=== PATIENT | female | born 1995 ===

== ENCOUNTER 2021-11-10 17:10 | Emergency (ER) | payer OTHER, SELFPAY ==
--- NOTE | ~2021-11-10 | XR_ITS ---
EXAMINATION: XR CHEST CLINICAL INFORMATION: Shortness of breath. COMPARISON: None. TECHNIQUE: PA view of the chest was obtained. FINDINGS: Normal appearance of the cardiomediastinal silhouette. Well expanded lungs without focal airspace opacities, pleural effusions or pneumothorax. The visualized upper abdomen is within normal limits. XR/XR chest 1V IMPRESSION: No acute cardiopulmonary findings.
[2021-11-10 17:17] VITALS: BP 126/78; PULSE 100; RESP 16; TEMP 36.3; O2SAT 97; BMI 22.2
[2021-11-10 17:49] LABS: MANUAL DIFF FLAG NO
[2021-11-10 17:51] LABS: Basophils Percent Auto 0.8 % (0-2); Eosinophils Absolute Auto 0.1 X10*3/uL (0.0-0.4); Eosinophils Percent Auto 2.6 % (0-4); Hematocrit 41.4 % (37.0-47.0); Hemoglobin 13.9 g/dl (12.0-16.0); Imm Gran Abs Auto 0.01 X10*3/uL (0.00-0.03); Imm Gran Pct Auto 0.2 % (0.0-0.4); Lymphocytes Absolute Auto 1.7 X10*3/uL (1.2-4.9); Lymphocytes Percent Auto 32.6 % (20-40); Mean Corpuscular HGB Conc 33.6 g/dl (31.0-35.0); Mean Corpuscular Hemoglobin 31.3 pg (27.0-33.0); Mean Corpuscular Volume 93.2 fL (80.0-98.0); Mean Platelet Volume 10.2 fL (9.4-12.3); Monocytes Absolute Auto 0.5 X10*3/uL (0.1-1.2); Monocytes Percent Auto 9.9 % (2-11); Neutrophils Absolute Auto 2.9 x10*3/uL (2.0-8.3); Neutrophils Percent Auto 53.9 % (45-73); Platelet Count 214 X10*3/uL (160-400); Red Blood Count 4.44 X10*6/uL (4.20-5.50); Red Cell Distribution Width 13.2 % (11.0-16.0); White Blood Count 5.3 X10*3/uL (4.8-10.8)
[2021-11-10 18:03] LABS: Anion Gap 9 (12-20); Blood Urea Nitrogen 14 mg/dL (9-16); Calcium 9.5 mg/dL (8.4-10.2); Carbon Dioxide 28 mmol/L (22-29); Chloride 105 mmol/L (96-108); Creatinine Clr Calc Pharmacy 62.5; Estimated Glomerular Filt Rate > 60; Glucose Random 106 mg/dL (60-115); Potassium 4.1 mmol/L (3.3-5.1); Sodium 138 mmol/L (135-145)
[2021-11-10 18:11] LABS: COVID-19 Test Negative (Negative); IDNOW Serial# 16C4AD1C
[2021-11-10 18:12] LABS: Influenza A Negative (Negative); Influenza B2 Negative (Negative)
--- NOTE | 2021-11-10 18:41 | ED_ITS ---
HPI - Asthma General Chief Complaint: Asthma Stated Complaint: Asthma Time Seen by Provider: 11/10/21 18:41 Source: patient Mode of arrival: ambulatory Limitations: no limitations History of Present Illness HPI Narrative: Patient is a 26 year old female presenting to the emergency department today with an acute asthma exacerbation. Patient states that she has a history of asthma and has been having an increase in wheezing for the last couple of days. Patient denies any dizziness, lightheadedness, abdominal pain, nausea, vomiting, fever, chills, blurry vision, double vision, loss of vision, chest pain, back pain, night sweats, pain with urination, increased urinary frequency, increased urinary urgency, blood in her urine or stool, syncope or a near syncopal episode, recent trauma or falls, bowel incontinence, bladder incontinence, bowel retention, bladder retention, or any other complaints at this time. MD complaint: asthma attack and wheezing Onset (ago): day(s) (3) Severity: mild Associated symptoms: dry cough Treatments Prior to Arrival: inhaled bronchodilator Related Data Current Asthma Therapy: inhaled bronchodilator Previous Rx's Medication Instructions Recorded albuterol sulfate 90 mcg/actuation 2 puff INHALATION Q6H PRN #8.5 g 11/10/21 aerosol inhaler azithromycin 250 mg tablet See Rx Instructions .ROUTE 11/10/21 .COMPLEX #6 tab ipratropium 0.5 mg-albuterol 3 mg 3 ml INHALATION Q6-8H PRN #90 ml 11/10/21 (2.5 mg base)/3 mL nebulization soln prednisone 20 mg tablet 20 mg PO DAILY 12 Days #26 tab 11/10/21 Allergies Allergy/AdvReac Type Severity Reaction Status Date / Time No Known Allergies Allergy Verified 11/10/21 17:20 Review of Systems Constitutional: Constitutional: Reports no additional constitutional complaints, Denies chills, Denies fever(s) and Denies night sweats Eyes: Eyes: Reports no additional eye complaints, Denies blurry vision, Denies change in vision, Denies diplopia, Denies eye discharge, Denies loss of vision and Denies eye pain ENT: Denies dizziness Cardiovascular: Cardiovascular: Reports no additional cardiovascular complaints, Denies chest pain, Denies lightheadedness, Denies Loss of Consciousness and Denies dyspnea Respiratory: Respiratory: Reports no additional respiratory complaints, Reports cough, Denies dyspnea and Reports wheezing Gastrointestinal: Gastrointestinal: Reports no additional gastrointestinal complaints, Denies abdominal pain, Denies melena, Denies hematochezia, Denies change in bowel habits and Denies change in stool character Genitourinary: Genitourinary: Denies hematuria, Denies urinary frequency, Denies dysuria, Denies urinary incontinence, Denies urinary hesitancy and Denies urinary urgency Musculoskeletal: Musculoskeletal: Reports no additional musculoskeletal complaints, Denies numbness and Denies tingling Neurologic: Denies dizziness, Denies loss of vision, Denies numbness and Denies tingling Psychiatric: Psychiatric: Reports no additional psychiatric complaints Endocrine: Endocrine: Reports no additional endocrine complaints Hematologic/Lymphatic: Hematologic/Lymphatic: Reports no additional hematologic/lymphatic complaints Allergic/Immunologic: Allergic/Immunologic: Reports no additional allergic/immunologic complaints and Reports wheezing PMFSH Past Medical History Attestation statement: The following information was validated with the patient. Source: old records reviewed Medical History Asthma Surgical History History of open heart surgery Social History Social History Advance Directives: No Advance Directives Information Provided: No Patient : No Physical Exam Vital Signs: Vital Signs: Last Vital Signs Temp 98.4 F 11/10/21 18:46 Pulse 88 11/10/21 19:22 Resp 18 11/10/21 19:22 BP 103/66 11/10/21 18:46 Pulse Ox 98 11/10/21 18:46 BMI result Body Mass Index 22.2 Const: General: cooperative, no acute distress, alert and awake Nutritional Appearance: well nourished Orientation/consciousness: patient oriented x3 Limitations: no limitations HEENT: Head: Yes normal to inspection and Yes atraumatic Ears: hearing grossly normal bilaterally and external ears normal General nose exam: Normal external nose present, no nasal discharge noted and no epistaxis Face and sinus: Yes normal facial exam, No abrasion and No laceration Mouth: Normal oral and palatal mucosa present, no drooling and no muffled voice Eyes: General: appearance normal, both eyes and all related structures Periorbital: periorbital findings normal Eyelids: Yes eyelids normal Conjunctivae: conjunctivae normal Pupils: Equal, round and reactive pupils present EOM: EOMs intact bilaterally Neck: Neck: Yes normal visual inspection, Yes full ROM and Yes no lymphadenopathy Chest: Chest palpation & inspection: normal inspection of the chest Resp: Effort & Inspection: normal respiratory effort, able to speak in complete sentences and audible wheezes Cardio: Palpation: normal PMI Rate: regular rate GI: Inspection: Yes normal to inspection Neuro: General: patient oriented x3 and moves all extremities Cranial nerves: Yes Equal, round and reactive pupils present Cognition (Neuro): normal cognition Motor exam (neuro): 5/5 motor strength present throughout Sensory Exam: Normal double simultaneous stimulation for sensation Coordination: [id number] test normal Extrem: General: Yes normal to inspection, Yes full ROM and Yes capillary refill normal Psych: Appearance: grossly normal Mental Status: mental status grossly normal Affect: normal affect Attitude: cooperative Thought process: Normal thought process present Thought content: Normal thought content present Insight: Good insight present (Psych) MDM - Asthma MDM Narrative Medical decision making narrative: Patient is a 26 year old female presenting to the emergency department today with an acute asthma exacerbation. Patient's physical exam showed diffuse bilateral wheezes but was otherwise unremarkable. Patient's blood work was unremarkable. Patient's chest x-ray showed no acute process. I explained my physical exam findings as well as all test results to the patient. I answered all questions asked by the patient. Patient received IM Decadron and a duoneb treatment which she stated helped her symptoms significantly. I stressed the importance of the patient taking her medication as prescribed. I stressed the importance of the patient following up with her primary care provider. I stressed the importance of the patient returning to the emergency department immediately if her symptoms were to worsen or if she were to develop any dizziness, shortness of breath, difficulty breathing, chest pain, blurry vision, loss of vision, nausea, vomiting, abdominal pain, fever, chills, back pain, or any other complaints. Patient verbalized agreement and understanding with this treatment plan and discharge. Differential Diagnosis Differential diagnosis: Likely Acute exacerbation Medical Records Attestation: I reviewed the patient's medical records. Lab Data Attestation: I reviewed the patient's lab results. Result diagrams: 11/10/21 17:41 11/10/21 17:41 Labs: Lab Results 11/10/21 11/10/21 11/10/21 Range/Units 17:41 17:41 17:41 WBC 5.3 (4.8-10.8) X10*3/uL RBC 4.44 (4.20-5.50) X10*6/uL Hgb 13.9 (12.0-16.0) g/dl Hct 41.4 (37.0-47.0) % MCV 93.2 (80.0-98.0) fL MCH 31.3 (27.0-33.0) pg MCHC 33.6 (31.0-35.0) g/dl RDW 13.2 (11.0-16.0) % Plt Count 214 (160-400) X10*3/uL MPV 10.2 (9.4-12.3) fL Immature Gran % (Auto) 0.2 (0.0-0.4) % Neut % (Auto) 53.9 (45-73) % Lymph % (Auto) 32.6 (20-40) % [place] % (Auto) 9.9 (2-11) % Eos % (Auto) 2.6 (0-4) % Baso % (Auto) 0.8 (0-2) % Lymph # (Auto) 1.7 (1.2-4.9) X10*3/uL [place] # (Auto) 0.5 (0.1-1.2) X10*3/uL Eos # (Auto) 0.1 (0.0-0.4) X10*3/uL Baso # (Auto) 0.0 (0.0-0.2) X10*3/uL Abs Immat Gran (auto) 0.01 (0.00-0.03) X10*3/uL Absolute Neuts (auto) 2.9 (2.0-8.3) x10*3/uL Absolute Nucleated RBC 0.000 (0.0-0.012) X10*3/uL Nucleated RBC % (auto) 0.0 (0.0-0.2) /100WBC Sodium 138 (135-145) mmol/L Potassium 4.1 (3.3-5.1) mmol/L Chloride 105 (96-108) mmol/L Carbon Dioxide 28 (22-29) mmol/L Anion Gap 9 L (12-20) BUN 14 (9-16) mg/dL Creatinine 0.93 (0.5-1.4) mg/dL Estim Creat Clear Calc 62.5 Estimated GFR > 60 Random Glucose 106 (60-115) mg/dL Calcium 9.5 (8.4-10.2) mg/dL COVID-19 (OMARI) (Negative) COVID-19 Clin Com Influenza Type A (NAYELY) Negative (Negative) Influenza Type B (NAYELY) Negative (Negative) Influenza A & B Note See Note 11/10/21 Range/Units 17:41 WBC (4.8-10.8) X10*3/uL RBC (4.20-5.50) X10*6/uL Hgb (12.0-16.0) g/dl Hct (37.0-47.0) % MCV (80.0-98.0) fL MCH (27.0-33.0) pg MCHC (31.0-35.0) g/dl RDW (11.0-16.0) % Plt Count (160-400) X10*3/uL MPV (9.4-12.3) fL Immature Gran % (Auto) (0.0-0.4) % Neut % (Auto) (45-73) % Lymph % (Auto) (20-40) % [place] % (Auto) (2-11) % Eos % (Auto) (0-4) % Baso % (Auto) (0-2) % Lymph # (Auto) (1.2-4.9) X10*3/uL [place] # (Auto) (0.1-1.2) X10*3/uL Eos # (Auto) (0.0-0.4) X10*3/uL Baso # (Auto) (0.0-0.2) X10*3/uL Abs Immat Gran (auto) (0.00-0.03) X10*3/uL Absolute Neuts (auto) (2.0-8.3) x10*3/uL Absolute Nucleated RBC (0.0-0.012) X10*3/uL Nucleated RBC % (auto) (0.0-0.2) /100WBC Sodium (135-145) mmol/L Potassium (3.3-5.1) mmol/L Chloride (96-108) mmol/L Carbon Dioxide (22-29) mmol/L Anion Gap (12-20) BUN (9-16) mg/dL Creatinine (0.5-1.4) mg/dL Estim Creat Clear Calc Estimated GFR Random Glucose (60-115) mg/dL Calcium (8.4-10.2) mg/dL COVID-19 (OMARI) Negative (Negative) COVID-19 Clin Com See Note Influenza Type A (NAYELY) (Negative) Influenza Type B (NAYELY) (Negative) Influenza A & B Note Imaging Data Chest x-ray: Attestation: I personally reviewed and interpreted this imaging study as follows: My impression: No acute process. Radiologist's impression: EXAMINATION: XR CHEST CLINICAL INFORMATION: Shortness of breath. COMPARISON: None. TECHNIQUE: PA view of the chest was obtained. FINDINGS: Normal appearance of the cardiomediastinal silhouette. Well expanded lungs without focal airspace opacities, pleural effusions or pneumothorax. The visualized upper abdomen is within normal limits. XR/XR chest 1V IMPRESSION: No acute cardiopulmonary findings. Dictated By: Yessy Washington Signed By: Electronically signed by Yessy? Padmini 11/10/21 [id number] Discharge Plan Discharge Clinical Impression: Asthma with acute exacerbation Patient Disposition: Home, Self-Care Instructions: Asthma (ED) Additional Instructions: Follow up with your primary care provider. Return to the emergency department immediately if your symptoms worsen or if you develop any dizziness, shortness of breath, difficulty breathing, chest pain, blurry vision, loss of vision, nausea, vomiting, abdominal pain, fever, chills, back pain, or any other complaints. Prescriptions: New prednisone 20 mg tablet 20 mg PO DAILY 12 Days Qty: 26 0RF Rx Instructions: Take 3 tablets once daily for 5 days THEN; Take 2 tablets once daily for 4 days THEN; take 1 tablet for 3 days azithromycin 250 mg tablet See Rx Instructions .ROUTE .COMPLEX Qty: 6 0RF Rx Instructions: For 250 mg dose pack: take 500 mg today (day 1), then 250 mg for 4 days (days 2-5) albuterol sulfate 90 mcg/actuation HFA aerosol inhaler 2 puff inhalation Q6H PRN (Reason: shortness of breath or wheezing) Qty: 8.5 0RF ipratropium-albuterol 0.5 mg-3 mg(2.5 mg base)/3 mL solution for nebulization 3 ml inhalation Q6-8H PRN (Reason: shortness of breath) Qty: 90 0RF Referrals: [facility] [place] Family Medicine [Provider Group] [facility] Primary Care, Artemio [Provider Group] [facility] [place] Primary Care,Bria [Provider Group] Physician,None [Primary Care Provider] - (Follow up with your PCP. ) Interventions: ED Discharge Assessment Last Done: 11/10/21 19:58 Discharge Date/Time: 11/10/21 20:00 Print Language: Kiswahili
[2021-11-10 18:46] VITALS: BP 103/66; PULSE 88; RESP 17; TEMP 36.9; O2SAT 98
[2021-11-10] MEDS: dexAMETHasone sod phosphate 10 MG/ML VIAL IM (19:07)
[2021-11-10] MEDS: Albuterol/Iprat 2.5/0.5MG 3 ML AMPUL.NEB INHALE (19:20)
[2021-11-10 19:22] VITALS: PULSE 88; RESP 18; O2SAT 98
== END 2021-11-10 20:00 | disposition home or self-care (01) ==
PROVIDERS: Emergency Provider Emergency Medicine Emergency Medical Services
DX: J45.901 Unspecified asthma with (acute) exacerbation (principal); R06.02 Shortness of breath; R05.9 Cough, unspecified; Z20.822 Contact with and (suspected) exposure to COVID-19; Z79.899 Other long term (current) drug therapy
CPT/HCPCS: 36415; 71045; 80048; 85025; 87502; 87635; 94640; 96372; 99284; J1100

== ENCOUNTER 2021-11-14 19:14 | Emergency (ER) | payer OTHER, SELFPAY ==
[2021-11-14 19:42] VITALS: BP 97/54; PULSE 97; RESP 15; TEMP 36.2; O2SAT 99; BMI 22.2
== END 2021-11-14 22:53 | disposition left against medical advice (07) ==
PROVIDERS: Emergency Provider Emergency Medicine
DX: J45.909 Unspecified asthma, uncomplicated (principal)
CPT/HCPCS: 99281; 99282

== ENCOUNTER 2022-04-18 19:03 | Emergency (ER) | payer OTHER, SELFPAY ==
--- NOTE | ~2022-04-18 | XR_ITS ---
EXAMINATION: XR CHEST CLINICAL INFORMATION: Chest pain COMPARISON: 11/10/2021 TECHNIQUE: 2 views of the chest were obtained. FINDINGS: Normal symmetric lung volumes. No parenchymal consolidation. No pleural effusion. No pneumothorax. Cardiomediastinal silhouette and pulmonary vascularity are within normal limits. No acute osseous abnormalities. Mild pectus excavatum. XR/XR chest 2V IMPRESSION: No acute findings Mild pectus excavatum.
--- NOTE | 2022-04-18 19:06 | ECG_ITS ---
Test Reason : cp Blood Pressure : / mmHG Vent. Rate : 073 BPM Atrial Rate : 073 BPM P-R Int : 166 ms QRS Dur : 074 ms QT Int : 412 ms P-R-T Axes : 046 076 032 degrees QTc Int : 453 ms Normal sinus rhythm T wave abnormality, consider anterior ischemia Abnormal ECG No previous ECGs available Referred By: Generic ED Physician Electronically Signed By:NIKOLAI DELGADO
[2022-04-18 19:11] VITALS: BP 131/77; PULSE 74; RESP 18; TEMP 37; O2SAT 99; BMI 22.2
[2022-04-18 19:23] LABS: MANUAL DIFF FLAG NO
[2022-04-18 19:31] LABS: Basophils Percent Auto 1.1 % (0-2); Eosinophils Absolute Auto 0.2 X10*3/uL (0.0-0.4); Eosinophils Percent Auto 6.5 % (0-4); Hematocrit 41.9 % (37.0-47.0); Lymphocytes Absolute Auto 1.5 X10*3/uL (1.2-4.9); Lymphocytes Percent Auto 41.6 % (20-40); Mean Corpuscular HGB Conc 33.4 g/dl (31.0-35.0); Mean Corpuscular Hemoglobin 30.7 pg (27.0-33.0); Mean Corpuscular Volume 91.9 fL (80.0-98.0); Mean Platelet Volume 9.6 fL (9.4-12.3); Monocytes Absolute Auto 0.6 X10*3/uL (0.1-1.2); Monocytes Percent Auto 17.1 % (2-11); Neutrophils Absolute Auto 1.2 x10*3/uL (2.0-8.3); Neutrophils Percent Auto 33.7 % (45-73); Platelet Count 175 X10*3/uL (160-400); Red Blood Count 4.56 X10*6/uL (4.20-5.50); Red Cell Distribution Width 12.8 % (11.0-16.0); White Blood Count 3.7 X10*3/uL (4.8-10.8)
[2022-04-18 19:43] LABS: Alanine Aminotransferase 11 U/L (0-31); Albumin Level 4.8 g/dL (3.5-5.0); Alkaline Phosphatase 58 U/L (39-117); Anion Gap 18 (12-20); Aspartate Amino Transferase 18 U/L (5-31); Blood Urea Nitrogen 11 mg/dL (9-16); Calcium 9.7 mg/dL (8.4-10.2); Carbon Dioxide 24 mmol/L (22-29); Chloride 102 mmol/L (96-108); Creatinine Clr Calc Pharmacy 66.2; Estimated Glomerular Filt Rate > 60; Glucose Random 83 mg/dL (60-115); Potassium 4.5 mmol/L (3.3-5.1); Sodium 139 mmol/L (135-145); Total Protein 7.7 g/dL (6.5-8.0)
[2022-04-18 19:48] LABS: Troponin-I High Sensitivity 3.8 ng/L (<3.5-17.0)
[2022-04-18 19:50] LABS: Bilirubin Total 0.7 mg/dL (0.0-1.0)
--- NOTE | 2022-04-18 23:10 | ED.CHESTPAIN ---
HPI - Chest Pain General Chief Complaint: Chest Pain Stated Complaint: chest pain Source: patient Mode of arrival: ambulatory Limitations: no limitations History of Present Illness HPI narrative: 27-year-old female presents for chest tightness and pressure, and asthma exacerbation. States that she has had a difficult time manage her asthma symptoms with her albuterol nebulizers. 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 She just moved to [place] from [place], does not have primary care. Her chest pain is not associated with dizziness, weakness, lightheadedness, nausea, vomiting, palpitations, abdominal pain, abdominal distention, dysuria, hematuria, fevers or chills. MD complaint: chest pain and chest heaviness Pertinent past history: asthma Onset (ago): day(s) (1) Timing of current episode: constant Prior episodes: Yes Onset: during exertion Pain location: substernal, left chest and right chest Pain radiation: none Severity: moderate Pain scale (0-10): 6 Quality: tightness Relieving factors: rest Exacerbating factors: exertion Treatment prior to arrival: none Related Data On Oral Contraceptives: No Previous Rx's Medication Instructions Recorded albuterol sulfate 90 mcg/actuation 2 puff inhalation Q6H PRN 11/10/21 aerosol inhaler shortness of breath or wheezing #8.5 grams azithromycin 250 mg tablet See Rx Instructions PO .COMPLEX #6 11/10/21 tabs ipratropium 0.5 mg-albuterol 3 mg 3 ml inhalation Q6-8H PRN 11/10/21 (2.5 mg base)/3 mL nebulization shortness of breath #90 mL soln prednisone 20 mg tablet 20 mg PO DAILY 12 days #26 tabs 11/10/21 Allergies Allergy/AdvReac Type Severity Reaction Status Date / Time No Known Allergies Allergy Verified 11/10/21 17:20 Review of Systems Review of Systems: Constitutional: No Fever, No Chills ENT/Mouth: No Ear Pain, No Hoarseness, No sore throat Eyes: No Eye Pain, No Swelling, No Redness, No Foreign Body Cardiovascular: Positive Chest Pain, positive SOB Respiratory: No Cough, No Dyspnea Gastrointestinal: No Nausea, No Vomiting, No Diarrhea, No abdominal Pain Genitourinary: No Dysuria, No Hematuria Musculoskeletal: No joint pain, No Myalgias, No Joint Swelling Skin: No Skin lacerations, No rash Neuro: No Weakness, No Numbness, No Paresthesias, No Loss of Consciousness, No Dizziness, No Headache Psych: No Anxiety/Panic, No Depression Heme/Lymph: no easy bruising, no Lymphadenopathy Endocrine: No Polyuria, No Polydipsia Yes all other systems are reviewed and are negative [facility] Past Medical History Attestation statement: The following information was validated with the patient. Source: old records reviewed Medical History Asthma Surgical History History of open heart surgery Social History Social History Advance Directives: No Advance Directives Information Provided: Yes Physical Exam Vital Signs: Vital Signs: Last Vital Signs Temp 98.1 F 04/18/22 23:40 Pulse 51 04/18/22 23:40 Resp 16 04/18/22 23:40 BP 112/60 04/18/22 23:40 Pulse Ox 97 04/18/22 23:40 O2 Del Method 04/18/22 23:40 BMI result Body Mass Index 22.2 Appearance: Alert. Oriented X3. No acute distress. Eyes: Pupils equal, round and reactive to light. ENT: Pharynx normal. Neck: Normal inspection. Neck supple. CVS: Normal heart rate and rhythm. Pulses normal. Respiratory: No respiratory distress. Lung sounds clear to auscultation all lobes. Abdomen: Soft and nontender. Skin: Skin warm and dry. Normal skin color. Normal skin turgor. Extremities: No lower extremity edema. Gait well-balanced well coordinated. Neuro: No motor deficit. No sensory deficit. Cranial nerves 2-12 intact. Course Course Course Narrative: 27-year-old female presents chest tightness shortness of breath 1 day. Has been using her albuterol inhaler with poor effect. Patient is adamant that she requires prednisone at this time, I did explain to her that her physical exam was unremarkable. She does understand the risks of over use of prednisone but feels that this time her chest tightness will not be resolved without it. Labs drawn while patient was in the emergency department waiting room, indicates a white count of 3.7, with normal chemistries, a negative troponin and normal EKG. At this time will order chest x-ray, albuterol neb and a Solu-Medrol 60 mg. 00:00 2nd troponin is negative. Plan of care is to discharge home. I will refer to pulmonology as well as Cardiology. Patient verbalized understanding of and agrees to plan of care. Verbalized understanding of signs symptoms indicating need for emergent intervention. MDM - Chest Pain Differential Diagnosis Differential diagnosis: Likely fracture of rib, pneumothorax, stable angina, atypical chest pain, st elevation myocardial infarction and chest pain Medical Records Data Attestation: I reviewed the patient's medical records. Lab Data Attestation: I reviewed the patient's lab results. Result diagrams: 04/18/22 19:18 04/18/22 19:18 Labs: Lab Results 04/18/22 04/18/22 04/18/22 Range/Units 19:18 19:18 19:18 WBC 3.7 L (4.8-10.8) X10*3/uL RBC 4.56 (4.20-5.50) X10*6/uL Hgb 14.0 (12.0-16.0) g/dl Hct 41.9 (37.0-47.0) % MCV 91.9 (80.0-98.0) fL MCH 30.7 (27.0-33.0) pg MCHC 33.4 (31.0-35.0) g/dl RDW 12.8 (11.0-16.0) % Plt Count 175 (160-400) X10*3/uL MPV 9.6 (9.4-12.3) fL Immature Gran % (Auto) 0.0 (0.0-0.4) % Neut % (Auto) 33.7 L (45-73) % Lymph % (Auto) 41.6 H (20-40) % [place] % (Auto) 17.1 H (2-11) % Eos % (Auto) 6.5 H (0-4) % Baso % (Auto) 1.1 (0-2) % Lymph # (Auto) 1.5 (1.2-4.9) X10*3/uL [place] # (Auto) 0.6 (0.1-1.2) X10*3/uL Eos # (Auto) 0.2 (0.0-0.4) X10*3/uL Baso # (Auto) 0.0 (0.0-0.2) X10*3/uL Abs Immat Gran (auto) 0.00 (0.00-0.03) X10*3/uL Absolute Neuts (auto) 1.2 L (2.0-8.3) x10*3/uL Absolute Nucleated RBC 0.000 (0.0-0.012) X10*3/uL Nucleated RBC % (auto) 0.0 (0.0-0.2) /100WBC Sodium 139 (135-145) mmol/L Potassium 4.5 (3.3-5.1) mmol/L Chloride 102 (96-108) mmol/L Carbon Dioxide 24 (22-29) mmol/L Anion Gap 18 (12-20) BUN 11 (9-16) mg/dL Creatinine 0.87 (0.5-1.4) mg/dL Estim Creat Clear Calc 66.2 Estimated GFR > 60 Random Glucose 83 (60-115) mg/dL Calcium 9.7 (8.4-10.2) mg/dL Total Bilirubin 0.7 (0.0-1.0) mg/dL AST 18 (5-31) U/L ALT 11 (0-31) U/L Alkaline Phosphatase 58 (39-117) U/L Troponin I High Sens 3.8 (<3.5-17.0) ng/L Total Protein 7.7 (6.5-8.0) g/dL Albumin 4.8 (3.5-5.0) g/dL 04/18/22 Range/Units 23:29 WBC (4.8-10.8) X10*3/uL RBC (4.20-5.50) X10*6/uL Hgb (12.0-16.0) g/dl Hct (37.0-47.0) % MCV (80.0-98.0) fL MCH (27.0-33.0) pg MCHC (31.0-35.0) g/dl RDW (11.0-16.0) % Plt Count (160-400) X10*3/uL MPV (9.4-12.3) fL Immature Gran % (Auto) (0.0-0.4) % Neut % (Auto) (45-73) % Lymph % (Auto) (20-40) % [place] % (Auto) (2-11) % Eos % (Auto) (0-4) % Baso % (Auto) (0-2) % Lymph # (Auto) (1.2-4.9) X10*3/uL [place] # (Auto) (0.1-1.2) X10*3/uL Eos # (Auto) (0.0-0.4) X10*3/uL Baso # (Auto) (0.0-0.2) X10*3/uL Abs Immat Gran (auto) (0.00-0.03) X10*3/uL Absolute Neuts (auto) (2.0-8.3) x10*3/uL Absolute Nucleated RBC (0.0-0.012) X10*3/uL Nucleated RBC % (auto) (0.0-0.2) /100WBC Sodium (135-145) mmol/L Potassium (3.3-5.1) mmol/L Chloride (96-108) mmol/L Carbon Dioxide (22-29) mmol/L Anion Gap (12-20) BUN (9-16) mg/dL Creatinine (0.5-1.4) mg/dL Estim Creat Clear Calc Estimated GFR Random Glucose (60-115) mg/dL Calcium (8.4-10.2) mg/dL Total Bilirubin (0.0-1.0) mg/dL AST (5-31) U/L ALT (0-31) U/L Alkaline Phosphatase (39-117) U/L Troponin I High Sens < 3.5 (<3.5-17.0) ng/L Total Protein (6.5-8.0) g/dL Albumin (3.5-5.0) g/dL Imaging Data Chest x-ray: Attestation: I personally reviewed and interpreted this imaging study as follows: Radiologist's impression: EXAMINATION: XR CHEST CLINICAL INFORMATION: Chest pain COMPARISON: 11/10/2021 TECHNIQUE: 2 views of the chest were obtained. FINDINGS: Normal symmetric lung volumes. No parenchymal consolidation. No pleural effusion. No pneumothorax.? Cardiomediastinal silhouette and pulmonary vascularity are within normal limits. No acute osseous abnormalities. Mild pectus excavatum. XR/XR chest 2V IMPRESSION: No acute findings Mild pectus excavatum. ECG Data ECG #1: ECG interpretation date: 04/18/22 ECG interpretation time: 19:08 Prior ECG tracings: not available for review Interpretation: Vent. rate 73 BPM ME interval 166 ms QRS duration 74 ms QT/QTc 412/453 ms P-R-T axes 46 76 32 Normal sinus rhythm T wave abnormality, consider anterior ischemia Abnormal ECG No previous ECGs available Discharge Plan Discharge Clinical Impression: Atypical chest pain, Asthma exacerbation Patient Disposition: Home, Self-Care Instructions: Chest Pain (ED), Asthma (ED) Additional Instructions: You were evaluated for chest pain and shortness of breath. EKG was normal, troponins were negative. Chest x-ray was normal. Please follow-up with pulmonology, I referred her to Dr. Perez. Please call and request an appointment for evaluation for asthma. You have a history of cardiac surgery as a child for tetralogy of Fallot repair. You have requested Cardiology referral, please follow-up with Dr. Oviedo. Please call and request for an appointment. Thank you for choosing this emergency department for evaluation. Please follow-up with primary care physician as needed. Return to the emergency department for any new, concerning, or worsening symptoms. Prescriptions: No Action prednisone 20 mg tablet 20 mg PO DAILY 12 Days Qty: 26 0RF Rx Instructions: Take 3 tablets once daily for 5 days THEN; Take 2 tablets once daily for 4 days THEN; take 1 tablet for 3 days azithromycin 250 mg tablet See Rx Instructions .ROUTE .COMPLEX Qty: 6 0RF Rx Instructions: For 250 mg dose pack: take 500 mg today (day 1), then 250 mg for 4 days (days 2-5) albuterol sulfate 90 mcg/actuation HFA aerosol inhaler 2 puff inhalation Q6H PRN (Reason: shortness of breath or wheezing) Qty: 8.5 0RF ipratropium-albuterol 0.5 mg-3 mg(2.5 mg base)/3 mL solution for nebulization 3 ml inhalation Q6-8H PRN (Reason: shortness of breath) Qty: 90 0RF Referrals: William Oviedo MD [Physician] - 2 weeks (consult ) Devan Perez MD [Physician] - 2 weeks (Asthma evaluation)
[2022-04-18 23:40] VITALS: BP 112/60; PULSE 51; RESP 16; TEMP 36.7; O2SAT 97
[2022-04-18] MEDS: methylPREDNISolone Sod Succ 125 MG/2 ML VIAL 60 MG IVPUSH (23:47)
--- NOTE | 2022-04-18 23:51 | PC.NURSE ---
pt a&ox3, vss, 20 G IV placed left AC, labs drawn, xr results pending. resp contacted re breathing treatment. no new orders at this time.
[2022-04-18 23:54] LABS: Troponin-I High Sensitivity < 3.5 ng/L (<3.5-17.0)
[2022-04-19] MEDS: Albuterol Sulfate 2.5 MG, Albuterol Sulfate (0.083%) 2.5 MG 5 MG INHALE (00:18)
== END 2022-04-19 00:54 | disposition home or self-care (01) ==
PROVIDERS: Nurse Practitioner Family; Emergency Provider Emergency Medicine
DX: R07.89 Other chest pain (principal); J45.901 Unspecified asthma with (acute) exacerbation
CPT/HCPCS: 36415; 71046; 80053; 84484; 85025; 93005; 96374; 99284; J2930

== ENCOUNTER 2022-07-11 18:59 | Emergency (ER) | payer OTHER, SELFPAY ==
[2022-07-11 19:35] VITALS: BP 121/73; PULSE 49; RESP 16; TEMP 36.6; O2SAT 100; BMI 22.2
--- NOTE | 2022-07-11 19:37 | ECG_ITS ---
Test Reason : LOW HEART RATE Blood Pressure : / mmHG Vent. Rate : 044 BPM Atrial Rate : 044 BPM P-R Int : 176 ms QRS Dur : 078 ms QT Int : 456 ms P-R-T Axes : 014 072 039 degrees QTc Int : 389 ms Marked sinus bradycardia T wave abnormality, consider anterior ischemia vs juvenile T waves Abnormal ECG When compared with ECG of 18-APR-2022 19:08, Vent. rate has decreased BY 29 BPM QT has shortened Referred By: Donald Enriquez Electronically Signed By:William Oviedo
--- NOTE | 2022-07-11 19:40 | ED.GENADULT ---
HPI - General Adult General Chief complaint: Arrhythmia/Palpitations <LORENA Williamson - Last Filed: 07/15/22 12:53> Stated complaint: asthma,low heart rate,out of inhaler <LORENA Williamson - Last Filed: 07/15/22 12:53> Time Seen by Provider: 07/11/22 22:32 <LORENA Williamson - Last Filed: 07/15/22 12:53> Source: patient <Tin Garcia MD - Last Filed: 07/11/22 23:49> Mode of arrival: ambulatory <Tin Garcia MD - Last Filed: 07/11/22 23:49> Limitations: no limitations <Tin Garcia MD - Last Filed: 07/11/22 23:49> History of Present Illness HPI narrative: Patient with history of asthma been having shortness of breath for last few days ran out of her inhaler went to urgent care center where notice her heart rate was slow in 40s patient asymptomatic no dizziness no syncope patient usually runs in the 60s <Tin Garcia MD - Last Filed: 07/11/22 23:49> Related Data Home medications: Previous Rx's Medication Instructions Recorded albuterol sulfate 90 mcg/actuation 2 puff inhalation Q6H PRN 11/10/21 aerosol inhaler shortness of breath or wheezing #8.5 grams azithromycin 250 mg tablet See Rx Instructions PO .COMPLEX #6 11/10/21 tabs ipratropium 0.5 mg-albuterol 3 mg 3 ml inhalation Q6-8H PRN 11/10/21 (2.5 mg base)/3 mL nebulization shortness of breath #90 mL soln prednisone 20 mg tablet 20 mg PO DAILY 12 days #26 tabs 11/10/21 albuterol sulfate 90 mcg/actuation 2 puff inhalation Q4-6H PRN 07/11/22 aerosol inhaler (ProAir HFA) shortness of breath or wheezing #8.5 grams prednisone 20 mg tablet 40 mg PO DAILY #10 tabs 07/11/22 <LORENA Williamson - Last Filed: 07/15/22 12:53> Allergies/adverse reactions: Allergies Allergy/AdvReac Type Severity Reaction Status Date / Time No Known Allergies Allergy Verified 07/11/22 19:38 <LORENA Williamson - Last Filed: 07/15/22 12:53> Review of Systems Review of Systems: Yes all other systems are reviewed and are negative <Tin Garcia MD - Last Filed: 07/11/22 23:49> PMFSH Past Medical History Medical History: Medical History Asthma <LORENA Williamson - Last Filed: 07/15/22 12:53> Surgical History: Surgical History History of open heart surgery <LORENA Williamson - Last Filed: 07/15/22 12:53> Social History Social History: Social History Advance Directives: No Advance Directives Information Provided: No <LORENA Williamson - Last Filed: 07/15/22 12:53> Physical Exam ED Vital Signs: Vital Signs - 24 hr 07/11/22 19:35 07/11/22 23:19 07/11/22 23:24 Temperature 97.8 F 98.0 F Pulse Rate 49 L 53 62 Respiratory Rate 16 12 Blood Pressure 121/73 113/65 120/85 Pulse Oximetry 100 100 Oxygen Delivery Method Room Air Room Air 07/11/22 23:21 07/11/22 23:22 Temperature Pulse Rate 52 64 Respiratory Rate Blood Pressure 122/78 120/85 Pulse Oximetry Oxygen Delivery Method BMI result Body Mass Index 22.2 <LORENA Williamson - Last Filed: 07/15/22 12:53> Vital Signs - 24 hr 07/11/22 19:35 07/11/22 23:19 07/11/22 23:24 Temperature 97.8 F 98.0 F Pulse Rate 49 L 53 62 Respiratory Rate 16 12 Blood Pressure 121/73 113/65 120/85 Pulse Oximetry 100 100 Oxygen Delivery Method Room Air Room Air 07/11/22 23:21 07/11/22 23:22 Temperature Pulse Rate 52 64 Respiratory Rate Blood Pressure 122/78 120/85 Pulse Oximetry Oxygen Delivery Method BMI result Body Mass Index 22.2 <Tin Garcia MD - Last Filed: 07/11/22 23:49> Appearance: Alert. Oriented X3. No acute distress. Eyes: PERRLA, No Nystagmus ENT: Pharynx normal. Oral Mucosa moist Neck: Normal inspection. Neck supple. Thyroid not palpable CVS: Regular rate and rhythm bradycardic no murmur rub or gallop. Pulses normal. Respiratory: No respiratory distress. Equal air entry bilateral, bilateral wheezing Abdomen: Soft and nontender. Bowel sounds are present, no mass palpable, no CVA tenderness Skin: Skin warm and dry. Normal skin color. Normal skin turgor. Extremities: No lower extremity edema. No calf tenderness Neuro: Oriented X 3. No motor deficit. <Tin Garcia MD - Last Filed: 07/11/22 23:49> Course Course Course Narrative: RME: Patient presents to the ED for low heart rate and chest tighthness. patient sent from urgent care. Patient EKG from urgent care shows sinus bradycardia with HR 47. new EKG, labs, and chest xray ordered <LORENA Williamson - Last Filed: 07/15/22 12:53> Medications Administered Discontinued Medications Generic Name Dose Route Start Last Admin Trade Name Freq PRN Reason Stop Dose Admin Albuterol Sulfate 4 puff 07/11/22 22:43 07/11/22 23:11 Albuterol Sulfate 90 Mcg 8 Gm Inhaler INHALE 07/11/22 22:44 4 puff ONCE ONE Administration Dexamethasone 10 mg 07/11/22 22:43 07/11/22 23:44 Dexamethasone 2 Mg Tablet PO 07/11/22 22:44 10 mg ONCE ONE Administration <LORENA Williamson - Last Filed: 07/15/22 12:53> Medications Administered Discontinued Medications Generic Name Dose Route Start Last Admin Trade Name Freq PRN Reason Stop Dose Admin Albuterol Sulfate 4 puff 07/11/22 22:43 07/11/22 23:11 Albuterol Sulfate 90 Mcg 8 Gm Inhaler INHALE 07/11/22 22:44 4 puff ONCE ONE Administration Dexamethasone 10 mg 07/11/22 22:43 07/11/22 23:44 Dexamethasone 2 Mg Tablet PO 07/11/22 22:44 10 mg ONCE ONE Administration <Tin Garcia MD - Last Filed: 07/11/22 23:49> Medical Decision Making Medical Decision Making [facility] Narrative: Patient with sinus bradycardia asymptomatic on standing heart rate increased to 60. Clinically euthyroid TSH is normal. Patient advised to follow with cardiology/PCP for further evaluation <Tin Garcia MD - Last Filed: 07/11/22 23:49> Lab Data [facility] Lab Attestation statement: I reviewed the patient's lab results. <Tin Garcia MD - Last Filed: 07/11/22 23:49> Result Diagrams: : 07/11/22 20:06 07/11/22 20:06 <LORENA Williamson - Last Filed: 07/15/22 12:53> Labs: Lab Results 07/11/22 07/11/22 07/11/22 Range/Units 20:06 20:06 20:06 WBC 5.6 (4.8-10.8) X10*3/uL RBC 4.32 (4.20-5.50) X10*6/uL Hgb 13.2 (12.0-16.0) g/dl Hct 40.0 (37.0-47.0) % MCV 92.6 (80.0-98.0) fL MCH 30.6 (27.0-33.0) pg MCHC 33.0 (31.0-35.0) g/dl RDW 12.8 (11.0-16.0) % Plt Count 187 (160-400) X10*3/uL MPV 10.0 (9.4-12.3) fL Immature Gran % (Auto) 0.2 (0.0-0.4) % Neut % (Auto) 37.3 L (45-73) % Lymph % (Auto) 47.9 H (20-40) % Lanier % (Auto) 7.5 (2-11) % Eos % (Auto) 6.6 H (0-4) % Baso % (Auto) 0.5 (0-2) % Lymph # (Auto) 2.7 (1.2-4.9) X10*3/uL Lanier # (Auto) 0.4 (0.1-1.2) X10*3/uL Eos # (Auto) 0.4 (0.0-0.4) X10*3/uL Baso # (Auto) 0.0 (0.0-0.2) X10*3/uL Abs Immat Gran (auto) 0.01 (0.00-0.03) X10*3/uL Absolute Neuts (auto) 2.1 (2.0-8.3) x10*3/uL Absolute Nucleated RBC 0.000 (0.0-0.012) X10*3/uL Nucleated RBC % (auto) 0.0 (0.0-0.2) /100WBC PT (10.0-13.1) SEC INR (0.9-1.1) APTT (26.0-36.4) SEC Sodium 139 (135-145) mmol/L Potassium 4.6 (3.3-5.1) mmol/L Chloride 106 (96-108) mmol/L Carbon Dioxide 26 (22-29) mmol/L Anion Gap 12 (12-20) BUN 21 H (9-16) mg/dL Creatinine 0.77 (0.5-1.4) mg/dL Estim Creat Clear Calc 74.8 Estimated GFR > 60 Random Glucose 90 (60-115) mg/dL Calcium 9.4 (8.4-10.2) mg/dL Total Bilirubin 0.4 (0.0-1.0) mg/dL AST 14 (5-31) U/L ALT 7 (0-31) U/L Alkaline Phosphatase 59 (39-117) U/L Troponin I High Sens < 3.5 (<3.5-17.0) ng/L B-Natriuretic Peptide (<100) pg/mL Total Protein 6.8 (6.5-8.0) g/dL Albumin 4.3 (3.5-5.0) g/dL TSH 1.09 (0.32-4.0) uIU/mL 07/11/22 07/11/22 Range/Units 20:06 20:06 WBC (4.8-10.8) X10*3/uL RBC (4.20-5.50) X10*6/uL Hgb (12.0-16.0) g/dl Hct (37.0-47.0) % MCV (80.0-98.0) fL MCH (27.0-33.0) pg MCHC (31.0-35.0) g/dl RDW (11.0-16.0) % Plt Count (160-400) X10*3/uL MPV (9.4-12.3) fL Immature Gran % (Auto) (0.0-0.4) % Neut % (Auto) (45-73) % Lymph % (Auto) (20-40) % Lanier % (Auto) (2-11) % Eos % (Auto) (0-4) % Baso % (Auto) (0-2) % Lymph # (Auto) (1.2-4.9) X10*3/uL Lanier # (Auto) (0.1-1.2) X10*3/uL Eos # (Auto) (0.0-0.4) X10*3/uL Baso # (Auto) (0.0-0.2) X10*3/uL Abs Immat Gran (auto) (0.00-0.03) X10*3/uL Absolute Neuts (auto) (2.0-8.3) x10*3/uL Absolute Nucleated RBC (0.0-0.012) X10*3/uL Nucleated RBC % (auto) (0.0-0.2) /100WBC PT 13.0 (10.0-13.1) SEC INR 1.1 (0.9-1.1) APTT 32.2 (26.0-36.4) SEC Sodium (135-145) mmol/L Potassium (3.3-5.1) mmol/L Chloride (96-108) mmol/L Carbon Dioxide (22-29) mmol/L Anion Gap (12-20) BUN (9-16) mg/dL Creatinine (0.5-1.4) mg/dL Estim Creat Clear Calc Estimated GFR Random Glucose (60-115) mg/dL Calcium (8.4-10.2) mg/dL Total Bilirubin (0.0-1.0) mg/dL AST (5-31) U/L ALT (0-31) U/L Alkaline Phosphatase (39-117) U/L Troponin I High Sens (<3.5-17.0) ng/L B-Natriuretic Peptide 35 (<100) pg/mL Total Protein (6.5-8.0) g/dL Albumin (3.5-5.0) g/dL TSH (0.32-4.0) uIU/mL <LORENA Williamson - Last Filed: 07/15/22 12:53> Lab Results 07/11/22 07/11/22 07/11/22 Range/Units 20:06 20:06 20:06 WBC 5.6 (4.8-10.8) X10*3/uL RBC 4.32 (4.20-5.50) X10*6/uL Hgb 13.2 (12.0-16.0) g/dl Hct 40.0 (37.0-47.0) % MCV 92.6 (80.0-98.0) fL MCH 30.6 (27.0-33.0) pg MCHC 33.0 (31.0-35.0) g/dl RDW 12.8 (11.0-16.0) % Plt Count 187 (160-400) X10*3/uL MPV 10.0 (9.4-12.3) fL Immature Gran % (Auto) 0.2 (0.0-0.4) % Neut % (Auto) 37.3 L (45-73) % Lymph % (Auto) 47.9 H (20-40) % Lanier % (Auto) 7.5 (2-11) % Eos % (Auto) 6.6 H (0-4) % Baso % (Auto) 0.5 (0-2) % Lymph # (Auto) 2.7 (1.2-4.9) X10*3/uL Lanier # (Auto) 0.4 (0.1-1.2) X10*3/uL Eos # (Auto) 0.4 (0.0-0.4) X10*3/uL Baso # (Auto) 0.0 (0.0-0.2) X10*3/uL Abs Immat Gran (auto) 0.01 (0.00-0.03) X10*3/uL Absolute Neuts (auto) 2.1 (2.0-8.3) x10*3/uL Absolute Nucleated RBC 0.000 (0.0-0.012) X10*3/uL Nucleated RBC % (auto) 0.0 (0.0-0.2) /100WBC PT (10.0-13.1) SEC INR (0.9-1.1) APTT (26.0-36.4) SEC Sodium 139 (135-145) mmol/L Potassium 4.6 (3.3-5.1) mmol/L Chloride 106 (96-108) mmol/L Carbon Dioxide 26 (22-29) mmol/L Anion Gap 12 (12-20) BUN 21 H (9-16) mg/dL Creatinine 0.77 (0.5-1.4) mg/dL Estim Creat Clear Calc 74.8 Estimated GFR > 60 Random Glucose 90 (60-115) mg/dL Calcium 9.4 (8.4-10.2) mg/dL Total Bilirubin 0.4 (0.0-1.0) mg/dL AST 14 (5-31) U/L ALT 7 (0-31) U/L Alkaline Phosphatase 59 (39-117) U/L Troponin I High Sens < 3.5 (<3.5-17.0) ng/L B-Natriuretic Peptide (<100) pg/mL Total Protein 6.8 (6.5-8.0) g/dL Albumin 4.3 (3.5-5.0) g/dL TSH 1.09 (0.32-4.0) uIU/mL 07/11/22 07/11/22 Range/Units 20:06 20:06 WBC (4.8-10.8) X10*3/uL RBC (4.20-5.50) X10*6/uL Hgb (12.0-16.0) g/dl Hct (37.0-47.0) % MCV (80.0-98.0) fL MCH (27.0-33.0) pg MCHC (31.0-35.0) g/dl RDW (11.0-16.0) % Plt Count (160-400) X10*3/uL MPV (9.4-12.3) fL Immature Gran % (Auto) (0.0-0.4) % Neut % (Auto) (45-73) % Lymph % (Auto) (20-40) % Lanier % (Auto) (2-11) % Eos % (Auto) (0-4) % Baso % (Auto) (0-2) % Lymph # (Auto) (1.2-4.9) X10*3/uL Lanier # (Auto) (0.1-1.2) X10*3/uL Eos # (Auto) (0.0-0.4) X10*3/uL Baso # (Auto) (0.0-0.2) X10*3/uL Abs Immat Gran (auto) (0.00-0.03) X10*3/uL Absolute Neuts (auto) (2.0-8.3) x10*3/uL Absolute Nucleated RBC (0.0-0.012) X10*3/uL Nucleated RBC % (auto) (0.0-0.2) /100WBC PT 13.0 (10.0-13.1) SEC INR 1.1 (0.9-1.1) APTT 32.2 (26.0-36.4) SEC Sodium (135-145) mmol/L Potassium (3.3-5.1) mmol/L Chloride (96-108) mmol/L Carbon Dioxide (22-29) mmol/L Anion Gap (12-20) BUN (9-16) mg/dL Creatinine (0.5-1.4) mg/dL Estim Creat Clear Calc Estimated GFR Random Glucose (60-115) mg/dL Calcium (8.4-10.2) mg/dL Total Bilirubin (0.0-1.0) mg/dL AST (5-31) U/L ALT (0-31) U/L Alkaline Phosphatase (39-117) U/L Troponin I High Sens (<3.5-17.0) ng/L B-Natriuretic Peptide 35 (<100) pg/mL Total Protein (6.5-8.0) g/dL Albumin (3.5-5.0) g/dL TSH (0.32-4.0) uIU/mL <Tin Garcia MD - Last Filed: 07/11/22 23:49> Independent Interpretation I performed an independent interpretation of an: EKG <Tin Garcia MD - Last Filed: 07/11/22 23:49> Interpretation: Sinus bradycardia heart rate 44 beats per minute normal tone normal axis no acute ischemic changes <Tin Garcia MD - Last Filed: 07/11/22 23:49> Discharge Plan Discharge Clinical Impression: Asthma, Bradycardia, sinus <LORENA Williamson - Last Filed: 07/15/22 12:53> Patient Disposition: Home, Self-Care <LORENA Williamson Last Filed: 07/15/22 12:53> Instructions: Asthma (ED), Bradycardia (ED) <LORENA Williamson Last Filed: 07/15/22 12:53> Additional Instructions: Continue to use her inhaler/nebulizing treatment Prednisone as prescribed Drink plenty of fluids Your heart rate is slightly slow but not life-threatening Follow-up with PCP/cardiology for further evaluation Report to the ER if passing out or dizziness <LORENA Williamson Last Filed: 07/15/22 12:53> Prescriptions: New prednisone 20 mg tablet 40 mg PO DAILY Qty: 10 0RF albuterol sulfate [ProAir HFA] 90 mcg/actuation HFA aerosol inhaler 2 puff inhalation Q4-6H PRN (Reason: shortness of breath or wheezing) Qty: 8.5 0RF No Action prednisone 20 mg tablet 20 mg PO DAILY 12 Days Qty: 26 0RF Rx Instructions: Take 3 tablets once daily for 5 days THEN; Take 2 tablets once daily for 4 days THEN; take 1 tablet for 3 days azithromycin 250 mg tablet See Rx Instructions .ROUTE .COMPLEX Qty: 6 0RF Rx Instructions: For 250 mg dose pack: take 500 mg today (day 1), then 250 mg for 4 days (days 2-5) albuterol sulfate 90 mcg/actuation HFA aerosol inhaler 2 puff inhalation Q6H PRN (Reason: shortness of breath or wheezing) Qty: 8.5 0RF ipratropium-albuterol 0.5 mg-3 mg(2.5 mg base)/3 mL solution for nebulization 3 ml inhalation Q6-8H PRN (Reason: shortness of breath) Qty: 90 0RF <LORENA Williamson Last Filed: 07/15/22 12:53> Referrals: Joni Huerta MD [Physician] - 2 weeks <LORENA Williamson Last Filed: 07/15/22 12:53> Interventions: ED Discharge Assessment Last Done: 07/11/22 23:49 <LORENA Williamson - Last Filed: 07/15/22 12:53> Discharge Date/Time: 07/11/22 23:53 <LORENA Williamson - Last Filed: 07/15/22 12:53>
[2022-07-11 20:10] LABS: MANUAL DIFF FLAG NO
[2022-07-11 20:12] LABS: Basophils Percent Auto 0.5 % (0-2); Eosinophils Absolute Auto 0.4 X10*3/uL (0.0-0.4); Eosinophils Percent Auto 6.6 % (0-4); Hemoglobin 13.2 g/dl (12.0-16.0); Imm Gran Abs Auto 0.01 X10*3/uL (0.00-0.03); Imm Gran Pct Auto 0.2 % (0.0-0.4); Lymphocytes Absolute Auto 2.7 X10*3/uL (1.2-4.9); Lymphocytes Percent Auto 47.9 % (20-40); Mean Corpuscular Hemoglobin 30.6 pg (27.0-33.0); Mean Corpuscular Volume 92.6 fL (80.0-98.0); Monocytes Absolute Auto 0.4 X10*3/uL (0.1-1.2); Monocytes Percent Auto 7.5 % (2-11); Neutrophils Absolute Auto 2.1 x10*3/uL (2.0-8.3); Neutrophils Percent Auto 37.3 % (45-73); Platelet Count 187 X10*3/uL (160-400); Red Blood Count 4.32 X10*6/uL (4.20-5.50); Red Cell Distribution Width 12.8 % (11.0-16.0); White Blood Count 5.6 X10*3/uL (4.8-10.8)
[2022-07-11 20:18] LABS: INTERNATIONAL NORM RATIO 1.1 (0.9-1.1)
[2022-07-11 20:20] LABS: Partial Thromboplastin Time 32.2 SEC (26.0-36.4)
[2022-07-11 20:34] LABS: B Type Natriuretic Peptide 35 pg/mL (<100)
[2022-07-11 20:36] LABS: Troponin-I High Sensitivity < 3.5 ng/L (<3.5-17.0)
[2022-07-11 20:50] LABS: Alanine Aminotransferase 7 U/L (0-31); Albumin Level 4.3 g/dL (3.5-5.0); Alkaline Phosphatase 59 U/L (39-117); Anion Gap 12 (12-20); Aspartate Amino Transferase 14 U/L (5-31); Bilirubin Total 0.4 mg/dL (0.0-1.0); Blood Urea Nitrogen 21 mg/dL (9-16); Calcium 9.4 mg/dL (8.4-10.2); Carbon Dioxide 26 mmol/L (22-29); Chloride 106 mmol/L (96-108); Creatinine Clr Calc Pharmacy 74.8; Estimated Glomerular Filt Rate > 60; Glucose Random 90 mg/dL (60-115); Potassium 4.6 mmol/L (3.3-5.1); Sodium 139 mmol/L (135-145); TSH reflex Free T4 1.09 uIU/mL (0.32-4.0); Total Protein 6.8 g/dL (6.5-8.0)
[2022-07-11] MEDS: Albuterol Sulfate 90 MCG 8 GM INHALER 4 PUFF INHALE (23:11)
[2022-07-11 23:19] VITALS: BP 113/65; PULSE 53
[2022-07-11 23:21] VITALS: BP 122/78; PULSE 52
[2022-07-11 23:22] VITALS: BP 120/85; PULSE 64
[2022-07-11 23:24] VITALS: BP 120/85; PULSE 62; RESP 12; TEMP 36.7; O2SAT 100
[2022-07-11] MEDS: dexAMETHasone 2 MG TABLET 10 MG PO (23:44)
== END 2022-07-11 23:53 | disposition home or self-care (01) ==
PROVIDERS: Physician Assistant; Emergency Provider Internal Medicine
DX: J45.909 Unspecified asthma, uncomplicated (principal); R00.1 Bradycardia, unspecified; R06.02 Shortness of breath
CPT/HCPCS: 36415; 71045; 80053; 83880; 84443; 84484; 85025; 85610; 85730; 93005; 99284; J8540

== ENCOUNTER 2022-08-21 16:14 | Emergency (ER) | payer OTHER, SELFPAY ==
--- NOTE | ~2022-08-21 | XR_ITS ---
EXAMINATION: XR CHEST CLINICAL INFORMATION: Cough and chest pain COMPARISON: 07/11/2022 TECHNIQUE: 2 views of the chest were obtained. FINDINGS: No significant abnormality is noted involving the heart, lungs, mediastinum, bony thorax or soft tissues. Again noted is biconvex thoracolumbar scoliosis. XR/XR chest 2V IMPRESSION: No acute intrathoracic disease.
[2022-08-21 16:18] VITALS: BP 94/37; PULSE 56; RESP 18; TEMP 36.3; O2SAT 99; BMI 22.2
--- NOTE | 2022-08-21 16:21 | ED_ITS ---
HPI - URI/Sore Throat General Chief Complaint: Abdominal Pain <Waleska Vital NP - Last Filed: 08/21/22 16:23> Stated Complaint: blood when coughing/ chest tightness <Waleska Vital NP - Last Filed: 08/21/22 16:23> Time Seen by Provider: 08/21/22 21:01 <Waleska Vital NP - Last Filed: 08/21/22 16:23> Source: patient <Herbie Franco MD - Last Filed: 08/21/22 21:32> Mode of arrival: ambulatory <Herbie Franco MD - Last Filed: 08/21/22 21:32> Limitations: no limitations <Herbie Franco MD - Last Filed: 08/21/22 21:32> History of Present Illness HPI Narrative: 27-year-old female who presents emergency department for evaluation of cough, chest pain, shortness of breath for 3 days. Patient states she has a history of asthma and has been using her albuterol inhaler 2 to 3 times a day with no improvement of her symptoms. She states that her cough is been productive of thick, yellow/green sputum with occasional streaks of blood. Patient states that her chest pain is located throughout her entire chest, is worse with breathing and coughing is 7/10 at its worst. She feels short of breath at rest and has shortness of breath with exertion. The patient denies any pain or swelling in her legs. She is not on control pills. She states she did go the [facility] which is approximately 2-[address] ride, 1 week prior. <Herbie Franco MD - Last Filed: 08/21/22 21:32> Related Data Home Medications: Previous Rx's Medication Instructions Recorded albuterol sulfate 90 mcg/actuation 2 puff inhalation Q6H PRN 11/10/21 aerosol inhaler shortness of breath or wheezing #8.5 grams azithromycin 250 mg tablet See Rx Instructions PO .COMPLEX #6 11/10/21 tabs ipratropium 0.5 mg-albuterol 3 mg 3 ml inhalation Q6-8H PRN 11/10/21 (2.5 mg base)/3 mL nebulization shortness of breath #90 mL soln prednisone 20 mg tablet 20 mg PO DAILY 12 days #26 tabs 11/10/21 albuterol sulfate 90 mcg/actuation 2 puff inhalation Q4-6H PRN 07/11/22 aerosol inhaler (ProAir HFA) shortness of breath or wheezing #8.5 grams prednisone 20 mg tablet 40 mg PO DAILY #10 tabs 07/11/22 amoxicillin 500 mg capsule 1,000 mg PO BID 7 days #28 caps 08/21/22 fluticasone propionate 250 1 inh inhalation Q12H #60 ea 08/21/22 mcg/actuation blister powder for inhalation (Flovent Diskus) prednisone 20 mg tablet 40 mg PO DAILY 5 days #10 tabs 08/21/22 <Waleska Vital NP - Last Filed: 08/21/22 16:23> Allergies/Adverse Reactions: Allergies Allergy/AdvReac Type Severity Reaction Status Date / Time No Known Allergies Allergy Verified 08/21/22 20:39 <Waleska Vital NP - Last Filed: 08/21/22 16:23> Review of Systems Review of Systems: Yes all other systems are reviewed and are negative <Herbie Franco MD - Last Filed: 08/21/22 21:32> [facility] Past Medical History [facility] Narrative: Past medical history: Asthma, congenital heart disease trial, operated on 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 Social history: The patient denies tobacco use. She denies alcohol use. She denies drug use. <Herbie Franco MD - Last Filed: 08/21/22 21:32> Medical History: Medical History Asthma <Waleska Vital NP - Last Filed: 08/21/22 16:23> Surgical History: Surgical History History of open heart surgery <Waleska Vtial NP - Last Filed: 08/21/22 16:23> Social History Social History: Social History Alcohol intake: never Smoked in Last 30 Days: No Use of substances other than those prescribed or required for medical reasons: Yes Substance Use Type: Marijuana Substance Use Frequency: Daily Advance Directives: No Advance Directives Information Provided: Yes Patient : No <Waleska Vital NP - Last Filed: 08/21/22 16:23> Physical Exam Vital Signs: Vital Signs: Last Vital Signs Temp 97.6 F 08/21/22 20:40 Pulse 53 08/21/22 20:40 Resp 18 08/21/22 20:40 BP 114/45 L 08/21/22 20:40 Pulse Ox 99 08/21/22 20:40 O2 Del Method 08/21/22 20:40 BMI result Body Mass Index 22.2 <Waleska Vital NP - Last Filed: 08/21/22 16:23> Vital Signs: Last Vital Signs Temp 97.6 F 08/21/22 20:40 Pulse 53 08/21/22 20:40 Resp 18 08/21/22 20:40 BP 114/45 L 08/21/22 20:40 Pulse Ox 99 08/21/22 20:40 O2 Del Method 08/21/22 20:40 BMI result Body Mass Index 22.2 <Herbie Franco MD - Last Filed: 08/21/22 21:32> Const: General: cooperative and no acute distress <Herbie Franco MD - Last Filed: 08/21/22 21:32> Orientation/consciousness: oriented to person and oriented to place <Herbie Franco MD - Last Filed: 08/21/22 21:32> Limitations: no limitations <Herbie Franco MD - Last Filed: 08/21/22 21:32> HEENT: Head: Yes normal to inspection, Yes normocephalic and Yes atraumatic <Herbie Franco MD - Last Filed: 08/21/22 21:32> Ears: external ears normal <Herbie Franco MD - Last Filed: 08/21/22 21:32> General nose exam: Normal external nose present <Herbie Franco MD - Last Filed: 08/21/22 21:32> Face and sinus: Yes normal facial exam <Herbie Franco MD - Last Filed: 08/21/22 21:32> Mouth: Normal oral and palatal mucosa present <Herbie Franco MD - Last Filed: 08/21/22 21:32> Throat: Yes posterior oropharynx normal <Herbie Franco MD - Last Filed: 08/21/22 21:32> Eyes: General: appearance normal, both eyes and all related structures <Herbie Franco MD - Last Filed: 08/21/22 21:32> Pupils: Equal, round and reactive pupils present <Herbie Franco MD - Last Filed: 08/21/22 21:32> Neck: Neck: Yes normal visual inspection, Yes no lymphadenopathy, Yes trachea midline and Yes supple <Herbie Franco MD - Last Filed: 08/21/22 21:32> Chest: Other: Patient has chest pain with palpation of her anterior and posterior chest <Herbie Franco MD - Last Filed: 08/21/22 21:32> Resp: Other: Patient's breath sounds symmetric bilaterally, she does have wheezing and rhonchi with no rales. <Herbie Franco MD - Last Filed: 08/21/22 21:32> Cardio: Rate: regular rate <Herbie Franco MD - Last Filed: 08/21/22 21:32> Rhythm: regular rhythm <Herbie Franco MD - Last Filed: 08/21/22 21:32> Heart sounds: S1 normal heart sound present, S2 normal heart sound present and no murmurs <Herbie Franco MD - Last Filed: 08/21/22 21:32> GI: Inspection: Yes normal to inspection <MD Emma Mandujano Last Filed: 08/21/22 21:32> Palpation (GI): Soft to palpation, nontender and no guarding <Herbie Franco MD - Last Filed: 08/21/22 21:32> Auscultation: normal bowel sounds <MD Emma Mandujano Last Filed: 08/21/22 21:32> : General: Yes no CVA tenderness <Herbie Franco MD - Last Filed: 08/21/22 21:32> Back/Spine/Pelvis: Back: no CVA tenderness <Herbie Franco MD - Last Filed: 08/21/22 21:32> Skin: General skin exam: no rashes or lesions noted <Herbie Franco MD - Last Filed: 08/21/22 21:32> Neuro: General: oriented to person and oriented to place <Herbie Franco MD - Last Filed: 08/21/22 21:32> Cranial nerves: Yes CN's II-XII intact bilaterally and Yes Equal, round and reactive pupils present <Herbie Franco MD - Last Filed: 08/21/22 21:32> Cognition (Neuro): normal cognition <Herbie Franco MD - Last Filed: 08/21/22 21:32> Motor exam (neuro): 5/5 motor strength present throughout <Herbie Franco MD - Last Filed: 08/21/22 21:32> Extrem: General: Yes normal to inspection <Herbie Franco MD - Last Filed: 08/21/22 21:32> Psych: Appearance: grossly normal <Herbie Franco MD - Last Filed: 08/21/22 21:32> Speech and movement: Normal speech and movement present <Herbie Franco MD - Last Filed: 08/21/22 21:32> Affect: normal affect <Herbie Franco MD - Last Filed: 08/21/22 21:32> Attitude: cooperative <Herbie Franco MD - Last Filed: 08/21/22 21:32> Thought process: Normal thought process present <Herbie Franco MD - Last Filed: 08/21/22 21:32> Thought content: Normal thought content present <Herbie Franco MD - Last Filed: 08/21/22 21:32> Course Course Course Narrative: This is rapid medical exam. Deferred additional HPI, ROS, PE to primary provider. 27 yo female congenital heart anomaly s/p repair at 7 yrs old, asthma here with 5 days of chest discomfort with coughing, cough with blood streaks. No fevers, chills, leg swelling or leg pain. No OCP use. VSS <Waleska Vital NP - Last Filed: 08/21/22 16:23> Medical Decision Making Medical Decision Making [facility] Narrative: 27-year-old female who presents emergency department for evaluation of 3 days of cough, chest pain, shortness of breath and dyspnea on exertion. Patient's chest pain is pleuritic. Patient's cough is productive of thick green/yellow sputum with occasional blood streaks. Patient's vital signs were unremarkable with a normal O2 saturation of 99% on room air. Lung exam did reveal diffuse wheezing and rhonchi with no rales. Patient had negative RSV, COVID-19 and influenza test. Chest x-ray was unremarkable on my interpretation as well as the radiologist interpretation. Patient's presentation is consistent with acute bronchitis with an asthma exacerbation. Patient will be treated with amoxicillin 1000 mg twice a day for 7 days, prednisone 40 mg once a day for 1 day and I did also prescribe a Flovent Diskus steroid inhaler for the patient to help improve her asthma over time. She was advised to start this after she completes her course of prednisone. Patient was given printed and verbal instructions and discharged home. <Herbie Franco MD - Last Filed: 08/21/22 21:32> Differential Diagnosis Differential diagnosis includes was not limited to pneumonia, bronchitis, pulmonary embolism, congestive heart failure, COVID-19, RSV, influenza <Herbie Franco MD - Last Filed: 08/21/22 21:32> Lab Data [facility] Lab Attestation statement: I reviewed the patient's lab results. <Herbie Franco MD - Last Filed: 08/21/22 21:32> All tests were negative. <Herbie Franco MD - Last Filed: 08/21/22 21:32> Labs: Lab Results 08/21/22 Range/Units 17:34 Influenza Type A (PCR) NEGATIVE (Negative) Influenza Type B (PCR) NEGATIVE (Negative) RSV RNA Qual (PCR) NEGATIVE (Negative) SARS-CoV-2 RNA (RT-PCR) NEGATIVE (Negative) <Waleska Vital NP - Last Filed: 08/21/22 16:23> Lab Results 08/21/22 Range/Units 17:34 Influenza Type A (PCR) NEGATIVE (Negative) Influenza Type B (PCR) NEGATIVE (Negative) RSV RNA Qual (PCR) NEGATIVE (Negative) SARS-CoV-2 RNA (RT-PCR) NEGATIVE (Negative) <Herbie Franco MD - Last Filed: 08/21/22 21:32> Independent Interpretation I performed an independent interpretation of an: Plain X-Ray <Herbie Franco MD - Last Filed: 08/21/22 21:32> Interpretation: Chest x-ray two view: No acute cardiopulmonary disease, scoliosis <Herbie Franco MD - Last Filed: 08/21/22 21:32> Radiology Impression Discussion of test interpretation with radiology: I have reviewed the radiologist's reading. <Herbie Franco MD - Last Filed: 08/21/22 21:32> Radiologist Impression: XR/XR chest 2V IMPRESSION: No acute intrathoracic disease. ?Dictated By: Robert Antonio MD Signed By:<Electronically signed by Robert Antonio MD in [place]>08/21/22 1656 <Herbie Franco MD - Last Filed: 08/21/22 21:32> Prescription Management I considered prescription management with: Pain Medication, Antibiotic and Other (Prednisone) <Herbie Franco MD - Last Filed: 08/21/22 21:32> Chronic Conditions Patient?s care impacted by: Other (Asthma) <Herbie Franco MD - Last Filed: 08/21/22 21:32> Discharge Plan Discharge Clinical Impression: Chest pain, pleuritic Acute bronchitis Qualifiers: Bronchitis organism: other organism Qualified Code(s): J20.8 - Acute bronchitis due to other specified organisms Asthma exacerbation Qualifiers: Asthma severity: moderate <Waleska Vital NP - Last Filed: 08/21/22 16:23> Patient Disposition: Home, Self-Care <Waleska Vital NP - Last Filed: 08/21/22 16:23> Instructions: Asthma (ED), Acute Bronchitis (ED) <Waleska Vital NP - Last Filed: 08/21/22 16:23> Additional Instructions: Your COVID-19, RSV and influenza tests were negative. Your chest x-ray did not reveal any evidence for pneumonia which is reassuring. Your symptoms are consistent with bronchitis which is causing a flare-up of your asthma. Take amoxicillin 500 mg pills, 2 pills every 12 hours for 7 days. This is an antibiotic that should treat bacterial bronchitis Take prednisone 20 mg pills, 3 pills once a day for 5 days. While you are taking prednisone, do not take any NSAIDs (Motrin, Advil, ibuprofen, Aleve, naproxen). Continue to use your albuterol (Ventolin) inhaler, 2 puffs every 4 hours as needed for shortness of breath or wheezing After you finish the prednisone use the Flovent Diskus inhaler twice a day. This is a steroid inhaler to help improve your asthma and help reduce the number of times that you have to use albuterol. I can only give you a 1 month supply, you will need to get a refill from your primary care provider. Please see the work note. <Waleska Vital, MANAGER [employer] - Last Filed: 08/21/22 16:23> Prescriptions: New amoxicillin 500 mg capsule 1,000 mg PO BID 7 Days Qty: 28 0RF prednisone 20 mg tablet 40 mg PO DAILY 5 Days Qty: 10 0RF Flovent Diskus 250 mcg/actuation blister with device 1 inh inhalation Q12H Qty: 60 0RF No Action prednisone 20 mg tablet 20 mg PO DAILY 12 Days Qty: 26 0RF Rx Instructions: Take 3 tablets once daily for 5 days THEN; Take 2 tablets once daily for 4 days THEN; take 1 tablet for 3 days azithromycin 250 mg tablet See Rx Instructions .ROUTE .COMPLEX Qty: 6 0RF Rx Instructions: For 250 mg dose pack: take 500 mg today (day 1), then 250 mg for 4 days (days 2-5) albuterol sulfate 90 mcg/actuation HFA aerosol inhaler 2 puff inhalation Q6H PRN (Reason: shortness of breath or wheezing) Qty: 8.5 0RF ipratropium-albuterol 0.5 mg-3 mg(2.5 mg base)/3 mL solution for nebulization 3 ml inhalation Q6-8H PRN (Reason: shortness of breath) Qty: 90 0RF prednisone 20 mg tablet 40 mg PO DAILY Qty: 10 0RF albuterol sulfate [ProAir HFA] 90 mcg/actuation HFA aerosol inhaler 2 puff inhalation Q4-6H PRN (Reason: shortness of breath or wheezing) Qty: 8.5 0RF <Waleska Vital NP - Last Filed: 08/21/22 16:23> Stand Alone Forms: Work/School Release <Waleska Vital NP - Last Filed: 08/21/22 16:23>
[2022-08-21 18:18] LABS: Influenza A PCR NEGATIVE (Negative); Influenza B PCR NEGATIVE (Negative); Resp Syncy Virus RNA Qual PCR NEGATIVE (Negative); SARS COV2 PCR INHOUSE NEGATIVE (Negative)
[2022-08-21 20:40] VITALS: BP 114/45; PULSE 53; RESP 18; TEMP 36.4; O2SAT 99
--- NOTE | 2022-08-21 20:47 | PC.NURSE ---
patient a&ox3, vss, pt c/o abd pain radiating to her back 7[birth year]02[birth year]27, also c/o cough, covid swab previously obtained in triage, awaiting provider, will continue to monitor.
== END 2022-08-21 21:42 | disposition home or self-care (01) ==
PROVIDERS: Nurse Practitioner Family; Emergency Provider Emergency Medicine Emergency Medical Services
DX: J20.8 Acute bronchitis due to other specified organisms (principal); J45.901 Unspecified asthma with (acute) exacerbation; R07.89 Other chest pain; R07.81 Pleurodynia; R10.9 Unspecified abdominal pain; R06.02 Shortness of breath; R05.9 Cough, unspecified; Z20.822 Contact with and (suspected) exposure to COVID-19; Z20.828 Contact with and (suspected) exposure to other viral communicable diseases; Z79.899 Other long term (current) drug therapy
CPT/HCPCS: 0241U; 71046; 99283; 99284

== ENCOUNTER 2023-03-17 21:38 | Emergency (ER) | payer OTHER, SELFPAY ==
[2023-03-17 22:01] VITALS: BP 97/38; PULSE 50; RESP 18; TEMP 36.6; O2SAT 100; BMI 20.8
--- NOTE | 2023-03-17 22:47 | ED.GENADULT ---
HPI - General Adult General Chief complaint: Extremity Injury, Lower Stated complaint: toenail lifting from toe, hurts too much Time Seen by Provider: 03/17/23 22:34 Source: patient, RN notes reviewed and old records reviewed Mode of arrival: ambulatory Limitations: no limitations History of Present Illness HPI narrative: 28-year-old female presents for evaluation of left great toe pain. She reports that she dropped a box on it 2 months ago She reports that she stubbed the toe two days ago causing the toenail to lift up She states this is causing pain to the toenail and she wants the toenail removed There is no redness, swelling to the area She has not taken any medication to help alleviate her symptoms Related Data Previous Rx's Medication Instructions Recorded albuterol sulfate 90 mcg/actuation 2 puff inhalation Q6H PRN 11/10/21 aerosol inhaler shortness of breath or wheezing #8.5 grams azithromycin 250 mg tablet See Rx Instructions PO .COMPLEX #6 11/10/21 tabs ipratropium 0.5 mg-albuterol 3 mg 3 ml inhalation Q6-8H PRN 11/10/21 (2.5 mg base)/3 mL nebulization shortness of breath #90 mL soln prednisone 20 mg tablet 20 mg PO DAILY 12 days #26 tabs 11/10/21 albuterol sulfate 90 mcg/actuation 2 puff inhalation Q4-6H PRN 07/11/22 aerosol inhaler (ProAir HFA) shortness of breath or wheezing #8.5 grams prednisone 20 mg tablet 40 mg PO DAILY #10 tabs 07/11/22 amoxicillin 500 mg capsule 1,000 mg PO BID 7 days #28 caps 08/21/22 fluticasone propionate 250 1 inh inhalation Q12H #60 ea 08/21/22 mcg/actuation blister powder for inhalation (Flovent Diskus) prednisone 20 mg tablet 40 mg PO DAILY 5 days #10 tabs 08/21/22 Allergies Allergy/AdvReac Type Severity Reaction Status Date / Time No Known Allergies Allergy Verified 03/17/23 22:12 Review of Systems Constitutional: Constitutional: Denies chills and Denies fever(s) Musculoskeletal: Comments: Left 5th toe pain PMFSH Past Medical History Medical History Asthma Surgical History History of open heart surgery Social History Social History Alcohol intake: never Substance Use Type: Marijuana Advance Directives: No Advance Directives Information Provided: No Physical Exam ED Vital Signs: Vital Signs - 24 hr 03/17/23 22:01 Temperature 98 F Pulse Rate 50 Respiratory Rate 18 Blood Pressure 97/38 L Pulse Oximetry 100 Oxygen Delivery Method Room Air BMI result Body Mass Index 20.8 Extrem Other: Patient's left foot has without any objective findings. There is no erythema, ecchymosis, edema. The toenail appears intact Medical Decision Making Medical Decision Making MDM Narrative: A 28-year-old female presents for evaluation of left great toenail pain. The toenail is intact. No findings of infectious etiology. On leaving the toenail in place to protect the underlying tissue as there is no deformity noted. Symptomatic care Differential Diagnosis Differential Diagnoses: The differential diagnosis associated with the presentation includes Left great toenail pain Nail bed injury Ingrown toenail Paronychia Discharge Plan Discharge Clinical Impression: Pain in toe of left foot Patient Disposition: Home, Self-Care Additional Instructions: You should not remove the toenail by yourself Use Motrin/Tylenol for the pain The toenail will likely fall off on its own Follow-up with her primary doctor Prescriptions: No Action prednisone 20 mg tablet 20 mg PO DAILY 12 Days Qty: 26 0RF Rx Instructions: Take 3 tablets once daily for 5 days THEN; Take 2 tablets once daily for 4 days THEN; take 1 tablet for 3 days azithromycin 250 mg tablet See Rx Instructions .ROUTE .COMPLEX Qty: 6 0RF Rx Instructions: For 250 mg dose pack: take 500 mg today (day 1), then 250 mg for 4 days (days 2-5) albuterol sulfate 90 mcg/actuation HFA aerosol inhaler 2 puff inhalation Q6H PRN (Reason: shortness of breath or wheezing) Qty: 8.5 0RF ipratropium-albuterol 0.5 mg-3 mg(2.5 mg base)/3 mL solution for nebulization 3 ml inhalation Q6-8H PRN (Reason: shortness of breath) Qty: 90 0RF prednisone 20 mg tablet 40 mg PO DAILY Qty: 10 0RF albuterol sulfate [ProAir HFA] 90 mcg/actuation HFA aerosol inhaler 2 puff inhalation Q4-6H PRN (Reason: shortness of breath or wheezing) Qty: 8.5 0RF amoxicillin 500 mg capsule 1,000 mg PO BID 7 Days Qty: 28 0RF prednisone 20 mg tablet 40 mg PO DAILY 5 Days Qty: 10 0RF Flovent Diskus 250 mcg/actuation blister with device 1 inh inhalation Q12H Qty: 60 0RF
== END 2023-03-17 23:07 | disposition home or self-care (01) ==
PROVIDERS: Emergency Provider Emergency Medicine
DX: M79.675 Pain in left toe(s) (principal); Z79.899 Other long term (current) drug therapy
CPT/HCPCS: 99282

== ENCOUNTER 2023-05-08 10:00 | Emergency (ER) | payer OTHER, SELFPAY ==
[2023-05-08 10:42] VITALS: BP 96/48; PULSE 60; RESP 18; TEMP 36.6; O2SAT 100; BMI 21.2
--- NOTE | 2023-05-08 12:39 | ED.GENADULT ---
HPI - General Adult General Chief complaint: Dyspnea Stated complaint: diff breathing Time Seen by Provider: 05/08/23 11:59 Source: patient Mode of arrival: ambulatory Limitations: no limitations History of Present Illness HPI narrative: Patient is a 28-year-old female with history of asthma presenting to the emergency department with complaint of 2 to 3 days of shortness breath and wheezing. Reports that she did have a mild nonproductive cough as well as a sore throat which have since improved. She denies any fevers. She denies any chest pain, ear pain, current sore throat. She states that she does not have a primary care provider and lost her inhaler. complaint: Wheezing Onset (ago): day(s) Location: chest Radiation: non-radiation Severity: mild Relieving factors: rest Exacerbating factors: other (Cold air) Associated symptoms: denies other symptoms Treatments prior to arrival: none Related Data Previous Rx's Medication Instructions Recorded albuterol sulfate 90 mcg/actuation 2 puff inhalation Q6H PRN 11/10/21 aerosol inhaler shortness of breath or wheezing #8.5 grams azithromycin 250 mg tablet See Rx Instructions PO .COMPLEX #6 11/10/21 tabs ipratropium 0.5 mg-albuterol 3 mg 3 ml inhalation Q6-8H PRN 11/10/21 (2.5 mg base)/3 mL nebulization shortness of breath #90 mL soln prednisone 20 mg tablet 20 mg PO DAILY 12 days #26 tabs 11/10/21 albuterol sulfate 90 mcg/actuation 2 puff inhalation Q4-6H PRN 07/11/22 aerosol inhaler (ProAir HFA) shortness of breath or wheezing #8.5 grams prednisone 20 mg tablet 40 mg (2 x 20 mg) PO DAILY #10 tabs 07/11/22 amoxicillin 500 mg capsule 1,000 mg (2 x 500 mg) PO BID 7 08/21/22 days #28 caps fluticasone propionate 250 1 inh inhalation Q12H #60 ea 08/21/22 mcg/actuation blister powder for inhalation (Flovent Diskus) prednisone 20 mg tablet 40 mg (2 x 20 mg) PO DAILY 5 days 08/21/22 #10 tabs albuterol sulfate 90 mcg/actuation 2 puff inhalation Q6H PRN 05/08/23 aerosol inhaler shortness of breath or wheezing #6.7 grams prednisone 20 mg tablet 40 mg (2 x 20 mg) PO DAILY #10 tabs 05/08/23 Allergies Allergy/AdvReac Type Severity Reaction Status Date / Time No Known Allergies Allergy Verified 03/17/23 22:12 Review of Systems Review of Systems: As per HPI. Yes all other systems are reviewed and are negative Constitutional: Constitutional: Reports as per HPI [facility] Past Medical History Medical History Asthma Surgical History History of open heart surgery Social History Social History Alcohol intake: never Smoked in Last 30 Days: No Use of substances other than those prescribed or required for medical reasons: Yes Substance Use Type: Marijuana Advance Directives: No Advance Directives Information Provided: Yes Physical Exam ED Vital Signs: Vital Signs - 24 hr 05/08/23 10:42 Temperature 97.8 F Pulse Rate 60 Respiratory Rate 18 Blood Pressure 96/48 L Pulse Oximetry 100 Oxygen Delivery Method Room Air BMI result Body Mass Index 21.2 Vital signs have been reviewed and appear to be correct. Blood pressure slightly low. Heart rate normal. Respiratory rate normal. Temperature normal. Oxygen saturation normal. Const General: cooperative, healthy appearing and no acute distress Orientation/consciousness: oriented to person, oriented to place, oriented to time and patient oriented x3 Limitations: no limitations HENMT Head: Yes normocephalic and Yes atraumatic Ears: external ears normal General nose exam: Normal external nose present Face and sinus: Yes face symmetric Mouth: oropharynx normal and moist mucous membranes Throat: Yes uvula midline Eyes Pupils: Equal, round and reactive pupils present Neck Neck: Yes normal visual inspection and Yes supple Resp Effort & Inspection: normal respiratory effort and able to speak in complete sentences Auscultation: clear to auscultation bilaterally and wheezes (very slight scattered inspiratory wheezes) Cardio Rate: regular rate Rhythm: regular rhythm Heart sounds: S1 normal heart sound present and S2 normal heart sound present GI Palpation (GI): Soft to palpation and nontender Auscultation: normoactive bowel sounds General: Yes no CVA tenderness Back/Spine/Pelvis Back: no CVA tenderness Skin General skin exam: elasticity normal and turgor normal Neuro General: oriented to person, oriented to place, oriented to time, patient oriented x3, moves all extremities, no focal motor deficits and CN's II-XI intact bilaterally Cranial nerves: Yes Equal, round and reactive pupils present Cognition (Neuro): normal cognition Extrem General: Yes full ROM, Yes no pedal edema and Yes no calf tenderness Psych Mental Status: mental status grossly normal Affect: normal affect Thought process: Normal thought process present Medical Decision Making Medical Decision Making MDM Narrative: Patient is a 28-year-old female with history of asthma presenting to the emergency department with complaint of 2 to 3 days of shortness breath and wheezing. On exam patient is awake, A+Ox3, VS WNL, afebrile, normal neurological exam without focal deficits, physical exam findings as above. Given reported symptoms and physical exam findings, initial differential includes asthma exacerbation, viral illness, bronchitis. Patient declining swabs for COVID and flu at this time. Given that patient is well-appearing with only mild scattered wheezes, feel patient is stable for discharge home with albuterol inhaler and short course of prednisone. Discussed with patient the importance of establishing care with a primary care provider for management of asthma symptoms. Patient provided with phone number to establish care with a PCP. Return precautions discussed at bedside. Patient verbalized understanding of and agreement with plan. Differential Diagnosis Differential Diagnoses: The differential diagnosis associated with the presentation includes As per MDM. External Record Review External record reviewed: Inpatient record, Office record and Outpatient record Prescription Management I considered prescription management with: Other Chronic Conditions Patient?s care impacted by: Other (Asthma) Discharge Plan Discharge Clinical Impression: Asthma with exacerbation Patient Disposition: Home, Self-Care Instructions: Asthma (DC) Additional Instructions: You were evaluated in the emergency department today for wheezing which is likely related to an asthma exacerbation. You are being prescribed an inhaler and a short course of steroids. Please take all medications as prescribed. IT IS VERY IMPORTANT THAT YOU ESTABLISH CARE WITH A PRIMARY CARE PROVIDER. YOU ARE BEING PROVIDED WITH A PHONE NUMBER TO CALL TO ESTABLISH CARE WITH A PRIMARY CARE PROVIDER. PLEASE CALL TO SET THAT UP THIS WEEK. Return to the emergency department if you develop chest pain, worsening shortness of breath, difficulty breathing, fever 100.4? F or greater, or any other concerning symptoms. Prescriptions: New prednisone 20 mg tablet 40 mg PO DAILY Qty: 10 0RF albuterol sulfate 90 mcg/actuation HFA aerosol inhaler 2 puff inhalation Q6H PRN (Reason: shortness of breath or wheezing) Qty: 6.7 0RF No Action prednisone 20 mg tablet 20 mg PO DAILY 12 Days Qty: 26 0RF Rx Instructions: Take 3 tablets once daily for 5 days THEN; Take 2 tablets once daily for 4 days THEN; take 1 tablet for 3 days azithromycin 250 mg tablet See Rx Instructions .ROUTE .COMPLEX Qty: 6 0RF Rx Instructions: For 250 mg dose pack: take 500 mg today (day 1), then 250 mg for 4 days (days 2-5) albuterol sulfate 90 mcg/actuation HFA aerosol inhaler 2 puff inhalation Q6H PRN (Reason: shortness of breath or wheezing) Qty: 8.5 0RF ipratropium-albuterol 0.5 mg-3 mg(2.5 mg base)/3 mL solution for nebulization 3 ml inhalation Q6-8H PRN (Reason: shortness of breath) Qty: 90 0RF prednisone 20 mg tablet 40 mg PO DAILY Qty: 10 0RF albuterol sulfate [ProAir HFA] 90 mcg/actuation HFA aerosol inhaler 2 puff inhalation Q4-6H PRN (Reason: shortness of breath or wheezing) Qty: 8.5 0RF amoxicillin 500 mg capsule 1,000 mg PO BID 7 Days Qty: 28 0RF prednisone 20 mg tablet 40 mg PO DAILY 5 Days Qty: 10 0RF Flovent Diskus 250 mcg/actuation blister with device 1 inh inhalation Q12H Qty: 60 0RF
== END 2023-05-08 12:54 | disposition home or self-care (01) ==
PROVIDERS: Emergency Provider Emergency Medicine Emergency Medical Services
DX: J45.901 Unspecified asthma with (acute) exacerbation (principal)
CPT/HCPCS: 99283; 99284

== ENCOUNTER 2023-08-05 08:46 | Emergency (ER) | payer SELFPAY ==
--- NOTE | ~2023-08-05 | XR_ITS ---
EXAMINATION: XR CHEST CLINICAL INFORMATION: Shortness of breath COMPARISON: Chest x-ray August 21, 2022 TECHNIQUE: Frontal view of the chest was obtained. FINDINGS: Cardiac silhouette is normal in size. The lungs are well aerated. There is no lobar consolidation. No pleural effusion or pneumothorax. Scoliotic changes of the spine. XR/XR chest 1V IMPRESSION: No acute pulmonary pathology.
[2023-08-05 08:52] VITALS: BP 121/62; PULSE 70; RESP 6; TEMP 36.4; O2SAT 95; BMI 21.4
--- NOTE | 2023-08-05 09:09 | ED.ASTHMA ---
HPI - Asthma General Chief Complaint: Asthma Stated Complaint: Shortness of breath Time Seen by Provider: 08/05/23 09:02 Source: patient Mode of arrival: ambulatory Limitations: no limitations History of Present Illness HPI Narrative: A 28-year-old female with history of asthma came in for evaluation of wheezing and shortness of breath x1 day. Started since yesterday when the patient started to have runny nose and sore throat which improved after using hot drinks yesterday, started this morning with nonproductive coughing, and shortness of breath and feeling tight with wheezing. No recent travel, no exposure to sick contacts, no lower extremity swelling or tenderness. Patient confirmed that this episode is typical for her asthma exacerbation episodes. Patient noted to have a normal O2 sat on the room air. Related Data Previous Rx's Medication Instructions Recorded albuterol sulfate 90 mcg/actuation 2 puff inhalation Q6H PRN 11/10/21 aerosol inhaler shortness of breath or wheezing #8.5 grams azithromycin 250 mg tablet See Rx Instructions PO .COMPLEX #6 11/10/21 tabs ipratropium 0.5 mg-albuterol 3 mg 3 ml inhalation Q6-8H PRN 11/10/21 (2.5 mg base)/3 mL nebulization shortness of breath #90 mL soln prednisone 20 mg tablet 20 mg PO DAILY 12 days #26 tabs 11/10/21 albuterol sulfate 90 mcg/actuation 2 puff inhalation Q4-6H PRN 07/11/22 aerosol inhaler (ProAir HFA) shortness of breath or wheezing #8.5 grams prednisone 20 mg tablet 40 mg (2 x 20 mg) PO DAILY #10 tabs 07/11/22 amoxicillin 500 mg capsule 1,000 mg (2 x 500 mg) PO BID 7 08/21/22 days #28 caps fluticasone propionate 250 1 inh inhalation Q12H #60 ea 08/21/22 mcg/actuation blister powder for inhalation (Flovent Diskus) prednisone 20 mg tablet 40 mg (2 x 20 mg) PO DAILY 5 days 08/21/22 #10 tabs albuterol sulfate 90 mcg/actuation 2 puff inhalation Q6H PRN 05/08/23 aerosol inhaler shortness of breath or wheezing #6.7 grams prednisone 20 mg tablet 40 mg (2 x 20 mg) PO DAILY #10 tabs 05/08/23 albuterol sulfate 2.5 mg/3 mL 2.5 mg (3 mL) inhalation Q4-6H PRN 08/05/23 (0.083 %) solution for nebulization shortness of breath or wheezing #75 mL albuterol sulfate 90 mcg/actuation 2 puff inhalation Q4-6H PRN 08/05/23 aerosol inhaler shortness of breath or wheezing #8.5 grams prednisone 20 mg tablet 20 mg PO BID #10 tabs 08/05/23 Allergies Allergy/AdvReac Type Severity Reaction Status Date / Time No Known Allergies Allergy Verified 03/17/23 22:12 Review of Systems Review of Systems: All other systems are reviewed and are negative Constitutional: Reports as per HPI and Reports no additional constitutional complaints Eyes: Reports as per HPI and Reports no additional eye complaints Reports system reviewed and no additional complaints, except as documented Cardiovascular: Reports as per HPI and Reports no additional cardiovascular complaints Respiratory: Reports as per HPI and Reports no additional respiratory complaints Gastrointestinal: Reports as per HPI and Reports no additional gastrointestinal complaints Genitourinary: Reports no additional female genitourinary complaints Musculoskeletal: Reports no additional musculoskeletal complaints Skin/Breast: Reports system reviewed and no additional complaints, except as docu Psychiatric: Reports no additional psychiatric complaints Endocrine: Reports no additional endocrine complaints Hematologic/Lymphatic: Reports no additional hematologic/lymphatic complaints Allergic/Immunologic: Reports no additional allergic/immunologic complaints Reports system reviewed and no additional complaints, except as documented and Reports Abnormal speech present PMFSH Past Medical History Onset Date is defined in the Problem List Problems that require an onset date and time if occurred within 24 hrs of arrival to the ED Aortic Dissection and Rupture; Neurologic impairment; Cardiopulmonary Arrest; Endotracheal Intubation; Insertion or Replacement of Mechanical Circulatory Assist Device Medical History Asthma Surgical History History of open heart surgery Social History Social History Alcohol intake: never Substance Use Type: Marijuana Advance Directives: No Physical Exam Vital Signs: Vital Signs: Last Vital Signs Temp 97.5 F 08/05/23 08:52 Pulse 74 08/05/23 10:17 Resp 16 08/05/23 10:17 BP 105/54 L 08/05/23 10:17 Pulse Ox 99 08/05/23 10:17 O2 Del Method Room Air 08/05/23 10:17 BMI result Body Mass Index 21.4 Vital signs have been reviewed and appear to be correct. Blood pressure elevated. Heart rate normal. Respiratory rate normal. Temperature normal. Oxygen saturation normal. Appearance: Alert. Oriented X3. No acute distress. Head: Normal external exam. Normocephalic. Atraumatic. No Victoria signs noted. No raccoon eyes noted Eyes: PERRLA. EOMI. Conjunctiva and sclera normal. Eyelids normal. ENT: TM's Normal. Pharynx normal. Uvula midline. Moist mucous membranes. No trismus noted. No drooling noted. No muffled voice noted. Neck: Normal inspection. Neck supple. FROM. No adenopathy. Thyroid Normal. No meningeal signs. No neck mass noted. CVS: Normal heart rate and rhythm. Heart sound normal. No murmurs noted. Pulses normal throughout. Respiratory: No respiratory distress. Painless inspiration. Breath sounds normal. Diffuse mild expiratory wheezing with prolonged expiration, No accessory muscle usage noted or decreased air movement noted. Abdomen: Soft and nontender. Bowel sounds normal in all 4 quadrants. No distention noted. No organomegaly noted. No visible injury noted. Back: No CVA tenderness. Full range of motion noted. Skin: Skin warm and dry. Normal skin color. Normal skin turgor. No rashes/lesions/lacerations noted. Extremities: No lower extremity edema. Extremities exhibit normal range of motion. Extremities nontender. Neuro: Oriented X 3. Cranial nerve exam: II-XII are grossly intact No motor deficit. No sensory deficit. Reflexes normal. Course Reevaluation(s) Reevaluation #1: Patient reports significant improvement, no wheezing, O2 sat 99% on room air. Will discharge with albuterol/prednisone 5 days course Time: 11:13 Medications Administered Discontinued Medications Generic Name Dose Route Start Last Admin Trade Name Freq PRN Reason Stop Dose Admin Albuterol Sulfate 2.5 mg/ 5 mg 08/05/23 09:23 08/05/23 09:31 Albuterol Sulfate 2.5 mg INHALE 08/05/23 09:24 5 mg ONCE ONE Administration Prednisone 40 mg 08/05/23 09:08 08/05/23 09:12 Prednisone 20 Mg Tablet PO 08/05/23 09:09 40 mg ONCE ONE Administration Medical Decision Making Differential Diagnosis Differential Diagnoses: The differential diagnosis associated with the presentation includes (Pneumonia, pneumothorax, viral bronchitis, strep pharyngitis.) Admission/Observation Consideration of admission/observation: Escalation of care including admission/observation considered Lab Data MDM Lab Attestation statement: I reviewed the patient's lab results. Labs: Lab Results 08/05/23 Range/Units 09:11 Influenza Type A (PCR) NEGATIVE (Negative) Influenza Type B (PCR) NEGATIVE (Negative) RSV RNA Qual (PCR) NEGATIVE (Negative) SARS-CoV-2 RNA (RT-PCR) NEGATIVE (Negative) S. pyogenes GrpA NAYELY Negative (Negative) Independent Interpretation I performed an independent interpretation of an: Plain X-Ray (Chest: No acute intrathoracic pathology.) Radiology Impression Discussion of test interpretation with radiology: I have reviewed the radiologist's reading. Chronic Conditions Patient?s care impacted by: Other (Bronchial asthma) Critical Care Time Critical Care Time Critical Care Time: Yes Total Critical Care Time: 40 Attestation: I spent 40 minutes providing critical care service to the patient, this including time spent at the bedside to evaluate the patient, reassess the patient, monitoring vital signs, review labs, and radiographic studies, counseling the patient/family, discussing the case with consultants, disposition the patient. Discharge Plan Discharge Clinical Impression: Asthma with acute exacerbation Patient Disposition: Home, Self-Care Instructions: Asthma (ED) Prescriptions: New prednisone 20 mg tablet 20 mg PO BID Qty: 10 0RF albuterol sulfate 90 mcg/actuation HFA aerosol inhaler 2 puff inhalation Q4-6H PRN (Reason: shortness of breath or wheezing) Qty: 8.5 0RF albuterol sulfate 2.5 mg /3 mL (0.083 %) solution for nebulization 2.5 mg inhalation Q4-6H PRN (Reason: shortness of breath or wheezing) Qty: 75 0RF No Action prednisone 20 mg tablet 20 mg PO DAILY 12 Days Qty: 26 0RF Rx Instructions: Take 3 tablets once daily for 5 days THEN; Take 2 tablets once daily for 4 days THEN; take 1 tablet for 3 days azithromycin 250 mg tablet See Rx Instructions .ROUTE .COMPLEX Qty: 6 0RF Rx Instructions: For 250 mg dose pack: take 500 mg today (day 1), then 250 mg for 4 days (days 2-5) albuterol sulfate 90 mcg/actuation HFA aerosol inhaler 2 puff inhalation Q6H PRN (Reason: shortness of breath or wheezing) Qty: 8.5 0RF ipratropium-albuterol 0.5 mg-3 mg(2.5 mg base)/3 mL solution for nebulization 3 ml inhalation Q6-8H PRN (Reason: shortness of breath) Qty: 90 0RF prednisone 20 mg tablet 40 mg PO DAILY Qty: 10 0RF albuterol sulfate [ProAir HFA] 90 mcg/actuation HFA aerosol inhaler 2 puff inhalation Q4-6H PRN (Reason: shortness of breath or wheezing) Qty: 8.5 0RF amoxicillin 500 mg capsule 1,000 mg PO BID 7 Days Qty: 28 0RF prednisone 20 mg tablet 40 mg PO DAILY 5 Days Qty: 10 0RF Flovent Diskus 250 mcg/actuation blister with device 1 inh inhalation Q12H Qty: 60 0RF prednisone 20 mg tablet 40 mg PO DAILY Qty: 10 0RF albuterol sulfate 90 mcg/actuation HFA aerosol inhaler 2 puff inhalation Q6H PRN (Reason: shortness of breath or wheezing) Qty: 6.7 0RF Interventions: ED Discharge Assessment Last Done: 08/05/23 11:46 Discharge Date/Time: 08/05/23 11:46
[2023-08-05] MEDS: predniSONE 20 MG TABLET 40 MG PO (09:12)
[2023-08-05] MEDS: Albuterol Sulfate 2.5 MG, Albuterol Sulfate (0.083%) 2.5 MG 5 MG INHALE (09:31)
[2023-08-05 09:32] VITALS: PULSE 63; RESP 16; O2SAT 99
[2023-08-05 09:49] LABS: IDNOW Serial# 08D9AD1C; Strep A Nucleic Acid Negative (Negative)
--- NOTE | 2023-08-05 10:00 | PC.NURSE ---
Patient is resting on stretcher, skin pwd, resp even and non labored, patient smiling stating she is feeling much better and that she can now get a full breath
[2023-08-05 10:01] LABS: Influenza A PCR NEGATIVE (Negative); Influenza B PCR NEGATIVE (Negative); Resp Syncy Virus RNA Qual PCR NEGATIVE (Negative); SARS COV2 PCR INHOUSE NEGATIVE (Negative)
[2023-08-05 10:17] VITALS: BP 105/54; PULSE 74; RESP 16; O2SAT 99
== END 2023-08-05 11:46 | disposition home or self-care (01) ==
PROVIDERS: Emergency Provider Emergency Medicine
DX: J45.901 Unspecified asthma with (acute) exacerbation (principal); Z11.52 Encounter for screening for COVID-19; Z20.828 Contact with and (suspected) exposure to other viral communicable diseases
CPT/HCPCS: 0241U; 71045; 87651; 94640; 99284

== ENCOUNTER 2023-12-28 21:36 | Emergency (ER) | payer MEDICAID, SELFPAY ==
[2023-12-28 22:43] VITALS: BP 110/39; PULSE 48; RESP 16; TEMP 36.2; O2SAT 99; BMI 23.2
--- NOTE | 2023-12-31 14:34 | PC.NURSE ---
Spoke with patient regarding her xray results. Xray results are processed and read. Patient plans to follow up with ED recommendations and will schedule an outpatient MRI.
== END 2023-12-29 01:18 | disposition left against medical advice (07) ==
LOC: HO.ED 12-29 01:19
PROVIDERS: Emergency Provider Emergency Medicine
DX: N63.20 Unspecified lump in the left breast, unspecified quadrant (principal)
CPT/HCPCS: 99281

== ENCOUNTER 2023-12-29 17:52 | Emergency (ER) | payer MEDICAID, SELFPAY ==
--- NOTE | 2023-12-29 | ECG_ITS ---
Test Reason : CHEST PAIN Blood Pressure : / mmHG Vent. Rate : 048 BPM Atrial Rate : 048 BPM P-R Int : 178 ms QRS Dur : 076 ms QT Int : 482 ms P-R-T Axes : 005 070 046 degrees QTc Int : 430 ms Sinus bradycardia Nonspecific ST and T wave abnormality Abnormal ECG When compared with ECG of 11-JUL-2022 19:52, No significant change was found Referred By: Generic ED Physician Electronically Signed By:STEPHANI HENRY
--- NOTE | ~2023-12-29 | XR_ITS ---
EXAMINATION: XR CHEST CLINICAL INFORMATION: Chest pain COMPARISON: Previous chest x-ray July 2023 TECHNIQUE: 2 views of the chest were obtained. FINDINGS: The cardiac and mediastinal contours are normal. The lungs are clear. No pleural effusion or pneumothorax. Mild thoracic scoliosis similar to previous exam. Bony structures otherwise unremarkable.. XR/XR chest 2V IMPRESSION: No evidence for acute disease in the chest. Thoracic scoliosis similar to prior exam.
[2023-12-29 18:14] VITALS: BP 128/62; PULSE 62; RESP 16; TEMP 36.8; O2SAT 100; BMI 21.9
--- NOTE | 2023-12-29 18:21 | ED_ITS ---
HPI - General Adult General Chief complaint: General Medical Stated complaint: difficulty breath, lump in breast, chest pain Time Seen by Provider: 12/29/23 22:55 Source: patient Mode of arrival: ambulatory Limitations: no limitations History of Present Illness ED Provider: valentín TILLMAN narrative: Patient noticed lump in left breast since yesterday no trauma no skin color change patient does have family history breast cancer patient is not lactating Related Data Previous Rx's ?Medication ?Instructions ?Recorded albuterol sulfate 90 mcg/actuation 2 puff inhalation Q6H PRN 11/10/21 aerosol inhaler shortness of breath or wheezing #8.5 grams azithromycin 250 mg tablet See Rx Instructions PO .COMPLEX #6 11/10/21 tabs ipratropium 0.5 mg-albuterol 3 mg 3 ml inhalation Q6-8H PRN 11/10/21 (2.5 mg base)/3 mL nebulization shortness of breath #90 mL soln prednisone 20 mg tablet 20 mg PO DAILY 12 days #26 tabs 11/10/21 albuterol sulfate 90 mcg/actuation 2 puff inhalation Q4-6H PRN 07/11/22 aerosol inhaler (ProAir HFA) shortness of breath or wheezing #8.5 grams prednisone 20 mg tablet 40 mg (2 x 20 mg) PO DAILY #10 tabs 07/11/22 amoxicillin 500 mg capsule 1,000 mg (2 x 500 mg) PO BID 7 08/21/22 days #28 caps fluticasone propionate 250 1 inh inhalation Q12H #60 ea 08/21/22 mcg/actuation blister powder for inhalation (Flovent Diskus) prednisone 20 mg tablet 40 mg (2 x 20 mg) PO DAILY 5 days 08/21/22 #10 tabs albuterol sulfate 90 mcg/actuation 2 puff inhalation Q6H PRN 05/08/23 aerosol inhaler shortness of breath or wheezing #6.7 grams prednisone 20 mg tablet 40 mg (2 x 20 mg) PO DAILY #10 tabs 05/08/23 albuterol sulfate 2.5 mg/3 mL 2.5 mg (3 mL) inhalation Q4-6H PRN 08/05/23 (0.083 %) solution for nebulization shortness of breath or wheezing #75 mL albuterol sulfate 90 mcg/actuation 2 puff inhalation Q4-6H PRN 08/05/23 aerosol inhaler shortness of breath or wheezing #8.5 grams prednisone 20 mg tablet 20 mg PO BID #10 tabs 08/05/23 Allergies Allergy/AdvReac Type Severity Reaction Status Date / Time No Known Allergies Allergy Verified 12/29/23 18:17 Review of Systems 2 Review of Systems: Yes all other systems are reviewed and are negative [facility] Past Medical History Medical History Asthma Surgical History History of open heart surgery Social History Social History Alcohol intake: never Substance Use Type: Marijuana Advance Directives: No Advance Directives Information Provided: No Do you have a plan to hurt others: No Plan Physical Exam ED Vital Signs: Vital Signs - 24 hr 12/29/23 18:14 12/29/23 21:53 12/29/23 23:32 Temperature 98.2 F 98.1 F 97.6 F Pulse Rate 62 64 50 Respiratory Rate 16 18 16 Blood Pressure 128/62 124/66 137/86 Pulse Oximetry 100 100 97 Oxygen Delivery Method Room Air Room Air Room Air 12/29/23 23:54 Temperature 97.6 F Pulse Rate 50 Respiratory Rate 16 Blood Pressure 137/86 Pulse Oximetry 97 Oxygen Delivery Method Room Air BMI result Body Mass Index 21.9 Chest Chest/axillae images: 2 1. Small 1 x 1 cm soft tissue lump palpable at 2 o'clock position not nodular seems like breast tissue no axillary lymph Course Course Course Narrative: RME performed by Mary Hutchinson PA-C. Patient is a 28 year old assigned female at presenting to the emergency department with chest pain while dancing yesterday and a lump in her left breast. Detailed physical exam and review of systems are deferred to the psychiatric clinician. EKG, labs, imaging, and swabs ordered. Patient placed back in the waiting room pending room availability and results. Medical Decision Making Medical Decision Making [facility] Narrative: Patient with breast tissue lump likely fibrocystic disease patient advised to follow-up with [facility] for mammogram and further evaluation Lab Data 12/29/23 19:39 12/29/23 19:39 Labs: Lab Results 12/29/23 Range/Units 19:39 WBC 5.8 (4.8-10.8) X10*3/uL RBC 4.13 L (4.20-5.50) X10*6/uL Hgb 13.3 (12.0-16.0) g/dl Hct 39.4 (37.0-47.0) % MCV 95.4 (80.0-98.0) fL MCH 32.2 (27.0-33.0) pg MCHC 33.8 (31.0-35.0) g/dl RDW 13.6 (11.0-16.0) % Plt Count 181 (160-400) X10*3/uL MPV 9.8 (9.4-12.3) fL Immature Gran % (Auto) 0.2 (0.0-0.4) % Neut % (Auto) 41.3 L (45-73) % Lymph % (Auto) 45.9 H (20-40) % [place] % (Auto) 7.8 (2-11) % Eos % (Auto) 4.1 H (0-4) % Baso % (Auto) 0.7 (0-2) % Lymph # (Auto) 2.7 (1.2-4.9) X10*3/uL [place] # (Auto) 0.5 (0.1-1.2) X10*3/uL Eos # (Auto) 0.2 (0.0-0.4) X10*3/uL Baso # (Auto) 0.0 (0.0-0.2) X10*3/uL Abs Immat Gran (auto) 0.01 (0.00-0.03) X10*3/uL Absolute Neuts (auto) 2.4 (2.0-8.3) x10*3/uL Absolute Nucleated RBC 0.000 (0.0-0.012) X10*3/uL Nucleated RBC % (auto) 0.0 (0.0-0.2) /100WBC Sodium 142 (135-145) mmol/L Potassium 4.5 (3.3-5.1) mmol/L Chloride 107 (96-108) mmol/L Carbon Dioxide 23 (22-29) mmol/L Anion Gap 17 (12-20) BUN 8 L (9-16) mg/dL Creatinine 0.79 (0.5-1.4) mg/dL Estim Creat Clear Calc 72.3 Estimated GFR > 60 Random Glucose 88 (60-115) mg/dL Calcium 9.5 (8.4-10.2) mg/dL Magnesium 2.2 (1.6-2.6) mg/dL Total Bilirubin 0.6 (0.0-1.0) mg/dL AST 16 (5-31) U/L ALT 11 (0-31) U/L Alkaline Phosphatase 50 (39-117) U/L Troponin I High Sens 7.7 D (<3.5-17.0) ng/L Total Protein 6.9 (6.5-8.0) g/dL Albumin 4.2 (3.5-5.0) g/dL Beta HCG, Quant < 2 mIU/mL Influenza Type A (PCR) NEGATIVE (Negative) Influenza Type B (PCR) NEGATIVE (Negative) RSV RNA Qual (PCR) NEGATIVE (Negative) SARS-CoV-2 RNA (RT-PCR) NEGATIVE (Negative) Discharge Plan Discharge Clinical Impression: Breast mass, left Patient Disposition: Home, Self-Care Instructions: Breast Mass (ED) Additional Instructions: Follow with PCP for further management and mammogram Prescriptions: No Action prednisone 20 mg tablet 20 mg PO DAILY 12 Days Qty: 26 0RF Rx Instructions: Take 3 tablets once daily for 5 days THEN; Take 2 tablets once daily for 4 days THEN; take 1 tablet for 3 days azithromycin 250 mg tablet See Rx Instructions .ROUTE .COMPLEX Qty: 6 0RF Rx Instructions: For 250 mg dose pack: take 500 mg today (day 1), then 250 mg for 4 days (days 2-5) albuterol sulfate 90 mcg/actuation HFA aerosol inhaler 2 puff inhalation Q6H PRN (Reason: shortness of breath or wheezing) Qty: 8.5 0RF ipratropium-albuterol 0.5 mg-3 mg(2.5 mg base)/3 mL solution for nebulization 3 ml inhalation Q6-8H PRN (Reason: shortness of breath) Qty: 90 0RF prednisone 20 mg tablet 40 mg PO DAILY Qty: 10 0RF albuterol sulfate [ProAir HFA] 90 mcg/actuation HFA aerosol inhaler 2 puff inhalation Q4-6H PRN (Reason: shortness of breath or wheezing) Qty: 8.5 0RF amoxicillin 500 mg capsule 1,000 mg PO BID 7 Days Qty: 28 0RF prednisone 20 mg tablet 40 mg PO DAILY 5 Days Qty: 10 0RF Flovent Diskus 250 mcg/actuation blister with device 1 inh inhalation Q12H Qty: 60 0RF prednisone 20 mg tablet 40 mg PO DAILY Qty: 10 0RF albuterol sulfate 90 mcg/actuation HFA aerosol inhaler 2 puff inhalation Q6H PRN (Reason: shortness of breath or wheezing) Qty: 6.7 0RF prednisone 20 mg tablet 20 mg PO BID Qty: 10 0RF albuterol sulfate 90 mcg/actuation HFA aerosol inhaler 2 puff inhalation Q4-6H PRN (Reason: shortness of breath or wheezing) Qty: 8.5 0RF albuterol sulfate 2.5 mg /3 mL (0.083 %) solution for nebulization 2.5 mg inhalation Q4-6H PRN (Reason: shortness of breath or wheezing) Qty: 75 0RF Referrals: Francisca Nina MD [Physician] - 1 week Shankar Braun MD [Physician] - 1 week Interventions: ED Discharge Assessment Last Done: 12/29/23 23:54 Discharge Date/Time: 12/29/23 23:55 Print Language: Estonian
[2023-12-29 19:44] LABS: MANUAL DIFF FLAG NO
[2023-12-29 19:46] LABS: Basophils Percent Auto 0.7 % (0-2); Eosinophils Absolute Auto 0.2 X10*3/uL (0.0-0.4); Eosinophils Percent Auto 4.1 % (0-4); Hematocrit 39.4 % (37.0-47.0); Hemoglobin 13.3 g/dl (12.0-16.0); Imm Gran Abs Auto 0.01 X10*3/uL (0.00-0.03); Imm Gran Pct Auto 0.2 % (0.0-0.4); Lymphocytes Absolute Auto 2.7 X10*3/uL (1.2-4.9); Lymphocytes Percent Auto 45.9 % (20-40); Mean Corpuscular HGB Conc 33.8 g/dl (31.0-35.0); Mean Corpuscular Hemoglobin 32.2 pg (27.0-33.0); Mean Corpuscular Volume 95.4 fL (80.0-98.0); Mean Platelet Volume 9.8 fL (9.4-12.3); Monocytes Absolute Auto 0.5 X10*3/uL (0.1-1.2); Monocytes Percent Auto 7.8 % (2-11); Neutrophils Absolute Auto 2.4 x10*3/uL (2.0-8.3); Neutrophils Percent Auto 41.3 % (45-73); Platelet Count 181 X10*3/uL (160-400); Red Blood Count 4.13 X10*6/uL (4.20-5.50); Red Cell Distribution Width 13.6 % (11.0-16.0); White Blood Count 5.8 X10*3/uL (4.8-10.8)
[2023-12-29 20:08] LABS: Troponin-I High Sensitivity 7.7 ng/L (<3.5-17.0)
[2023-12-29 20:12] LABS: Calcium 9.5 mg/dL (8.4-10.2)
[2023-12-29 20:20] LABS: Alanine Aminotransferase 11 U/L (0-31); Albumin Level 4.2 g/dL (3.5-5.0); Alkaline Phosphatase 50 U/L (39-117); Anion Gap 17 (12-20); Aspartate Amino Transferase 16 U/L (5-31); Bilirubin Total 0.6 mg/dL (0.0-1.0); Blood Urea Nitrogen 8 mg/dL (9-16); Carbon Dioxide 23 mmol/L (22-29); Chloride 107 mmol/L (96-108); Creatinine Clr Calc Pharmacy 72.3; Estimated Glomerular Filt Rate > 60; Glucose Random 88 mg/dL (60-115); HCG Quantitative < 2 mIU/mL; Magnesium 2.2 mg/dL (1.6-2.6); Potassium 4.5 mmol/L (3.3-5.1); Sodium 142 mmol/L (135-145); Total Protein 6.9 g/dL (6.5-8.0)
[2023-12-29 20:23] LABS: Influenza A PCR NEGATIVE (Negative); Influenza B PCR NEGATIVE (Negative); Resp Syncy Virus RNA Qual PCR NEGATIVE (Negative); SARS COV2 PCR INHOUSE NEGATIVE (Negative)
[2023-12-29 21:53] VITALS: BP 124/66; PULSE 64; RESP 18; TEMP 36.7; O2SAT 100
[2023-12-29 23:32] VITALS: BP 137/86; PULSE 50; RESP 16; TEMP 36.4; O2SAT 97
[2023-12-29 23:54] VITALS: BP 137/86; PULSE 50; RESP 16; TEMP 36.4; O2SAT 97
== END 2023-12-29 23:55 | disposition home or self-care (01) ==
PROVIDERS: Physician Assistant Medical; Emergency Provider Internal Medicine
DX: N63.20 Unspecified lump in the left breast, unspecified quadrant (principal); J45.909 Unspecified asthma, uncomplicated
CPT/HCPCS: 0241U; 71046; 80053; 83735; 84484; 84702; 85025; 93005; 99283; 99284

== ENCOUNTER → 2023-12-29 17:58 | Outpatient (BNV) | payer MEDICAID, SELFPAY | PROVIDERS: Emergency Provider Internal Medicine; Visit Provider Internal Medicine | DX: R00.1 Bradycardia, unspecified (principal) | CPT/HCPCS: 93010 ==

== ENCOUNTER 2024-01-13 15:11 | Outpatient (AMB) | payer OTHER, SELFPAY ==
[2024-01-13 15:24] VITALS: BP 118/70; BMI 21.8
--- NOTE | 2024-01-13 15:24 | A.OFFVIS_ITS ---
Vital Signs 3 01/13/24 15:24 Height 4 ft 11 in Weight 108 lb BMI 21.8 BP 118/70 Intake Visit Reasons: Er follow up Greenhouse Technician Services: Greenhouse Technician Present Information Interpreted: clinical only Junior Accountant Bookkeeper: Junior Accountant Bookkeeper Present Allergies No Known Allergies Allergy (Verified 01/13/24 15:25) Medication List - Last Reconciled 01/13/24 by Jessica Espinoza CNM albuterol sulfate 90 mcg/actuation 2 puffs inhalation Q6H PRN albuterol sulfate 90 mcg/actuation (ProAir HFA) 2 puffs inhalation Q4-6H PRN albuterol sulfate 90 mcg/actuation 2 puffs inhalation Q6H PRN albuterol sulfate 90 mcg/actuation 2 puffs inhalation Q4-6H PRN albuterol sulfate 2.5 mg (3 mL) inhalation Q4-6H PRN fluticasone propionate 250 mcg/actuation (Flovent Diskus) 1 inh inhalation Q12H ipratropium-albuterol 0.5 mg-3 mg(2.5 mg base)/3 mL 3 mL inhalation Q6-8H PRN Is last menstrual period known: Yes Last menstrual period: 12/28/23 HPI HPI Er follow up: Details: Patient is here as a referral for a breast mass for which she went to the emergency room. Patient says she was dancing in her room and she happened to catch her breast in her hand and felt a mass on the left side and then she went to the emergency she tells me that she also has a history of having pain in that breast such that it feels like somebody grabs her breast and punches it. To the best of her recollection she had this pain after her period And that is when she found the mass as well. The patient also tells me on questioning that she does have a family history of breast cancer her mother had breast cancer and she also had colon cancer twice. I asked if her mom had been tested for the BRCA gene and she says she believes she had been and that they at [facility] wanted her, srinivasa, to get tested as well but she is too scared and did not want to think about that and so did not she says that was about 8 years ago before she had her kids. She says she does not have a primary care provider because every time she tries to find 1 the waiting list is 3 or 4 months and she says she can not wait and so she does not follow up and she gave up. The patient is here today she says she does not keep track of her periods but on careful thinking about it she realize that she believes she had her. At the end of November and so it had ended before she felt the mass. She has not contraceptiving, she has 2 children. Patient stated her only other health concerns were asthma which is fairly well controlled gets worse in the winter and isn't bothered really by her allergies unless the asthma itself is already acting up [facility] Medical History (Updated 01/13/24 @ 16:43 by Jessica Espinoza CNM) Asthma Surgical History (Updated 01/13/24 @ 16:43 by Jessica Espinoza CNM) History of open heart surgery Family History (Updated 01/13/24 @ 15:29 by Liban Beal CMA) Mother Breast cancer Colon cancer Social History Alcohol intake: never Substance Use Type: Marijuana Female Reproductive History Menstrual Age of Menarche: 11 Date of last menstrual period: 12/28/23 Physical Exam Vital Signs: Last Vital Signs BP 118/70 01/13/24 15:24 BMI result Body Mass Index 21.8 Chest Other: Patient is complaining of mass and left breast I checked the right breast 1st and I felt solid tissue irregular firm 11:00 to 1:00. In the left breast that is where the patient is feeling the mass and that is a little bit more palpable but also irregular solid firm in the 11:00 to 1:00 area. No other dimpling skin changes noted both nipples odette. Patient also has a vertical scar in the middle of her chest which she says was from heart surgery when she was 7 years old for a hole in her heart. Chest/axillae images: 2 1. Mass right breast 2. Mass left breast 3. Scar from surgery at age 7 to correct hole in heart Assessment & Plan Assessment & Plan (1) Palpable mass of breast: Comment: Patient complained of painful lump of left breast palpable masses both breasts 1:00 to 3:00 irregular somewhat solid Code(s): N63.0 - Unspecified lump in unspecified breast Category: Medical (2) Family history of breast cancer in first degree relative: Comment: Patient states her mother had colon cancer twice starting at age 45 and then breast cancer and that she was positive for the BRCA gene. Patient states she was recommended to get tested some 8 years ago but did not want to know then... Code(s): Z80.3 - Family history of malignant neoplasm of breast Category: Medical (3) History of open heart surgery: Code(s): Z98.890 - Other specified postprocedural states Category: Surgical (4) Asthma: Comment: States it is fine now she does not have a primary care provider... Code(s): J45.909 - Unspecified asthma, uncomplicated Category: Medical Plan I am placing a diagnostic mammogram order for both breasts and bilateral breast ultrasounds as well for the bilateral masses. I am also placing a referral to breast surgery so that any follow-up can be taken care of. Patient indicates that she was told that her mother had the BRCA gene 8 years ago and that she herself she had been tested that she did not want to think about that then. I discussed that she should have this conversation again when she is seen for breasts surgery visit. I did tell her that often when it is bilateral it often turns out NOT to be something very scary but important thing to do is to get checked out., so I am placing all of these referrals and orders now. Additionally I requested that the patient have a conversation with the office machine service supervisor at the front to see if there was a list of primary care providers that she could be referred to. Reportedly when the patient got to the front end ui developer, she tearfully told Dora that she could not deal with this now, and left. Orders: Orders 2 US breast LT complete Today N63.0 - Unspecified lump in unspecified breast US breast RT complete Today N63.0 - Unspecified lump in unspecified breast MM tomosynthesis diagnostic BI Today N63.0 - Unspecified lump in unspecified breast Referrals 2 Breast Surgery Referral N63.0 - Unspecified lump in unspecified breast, Z80.3 - Family history of malignant neoplasm of breast Medications: Discontinued 2 prednisone Discontinued Reason: Patient Completed Course 40 mg (2 x 20 mg) PO DAILY 10 tabs 0RF azithromycin Discontinued Reason: Patient Completed Course For 250 mg dose pack: take 500 mg today (day 1), then 250 mg for 4 days (days 2-5) 6 tabs 0RF prednisone Take 3 tablets once daily for 5 days THEN; Take 2 tablets once daily for 4 days THEN; take 1 tablet for 3 days Discontinued Reason: Patient Completed Course 20 mg PO DAILY 12 days 26 tabs 0RF amoxicillin Discontinued Reason: Patient Completed Course 1,000 mg (2 x 500 mg) PO BID 7 days 28 caps 0RF prednisone Discontinued Reason: Patient Completed Course 40 mg (2 x 20 mg) PO DAILY 5 days 10 tabs 0RF prednisone Discontinued Reason: Patient Completed Course 40 mg (2 x 20 mg) PO DAILY 10 tabs 0RF prednisone Discontinued Reason: Patient Completed Course 20 mg PO BID 10 tabs 0RF Coding Level of Care Code New Pt Level 3 (46985) Diagnoses Palpable mass of breast N63.0 Family history of breast cancer in first degree relative Z80.3 History of open heart surgery Z98.890 Asthma J45.909
== END 2024-01-13 16:20 | disposition home or self-care (01) ==
LOC: HO.HWSM 15:11
PROVIDERS: Visit Provider Advanced Practice Midwife
DX: N63.0 Unspecified lump in unspecified breast (principal); Z80.3 Family history of malignant neoplasm of breast; Z98.890 Other specified postprocedural states; J45.909 Unspecified asthma, uncomplicated
CPT/HCPCS: 99203

== ENCOUNTER → 2024-01-13 15:11 | Outpatient (BNVA) | payer OTHER, SELFPAY | PROVIDERS: Visit Provider Advanced Practice Midwife | DX: N63.21 Unspecified lump in the left breast, upper outer quadrant (principal); J45.909 Unspecified asthma, uncomplicated; Z80.3 Family history of malignant neoplasm of breast; Z98.890 Other specified postprocedural states | CPT/HCPCS: 99202 ==

== ENCOUNTER → 2024-02-05 14:00 | Outpatient (BNV) | payer OTHER, SELFPAY | PROVIDERS: Visit Provider Radiology Diagnostic Radiology | DX: N63.25 Unspecified lump in the left breast, overlapping quadrants (principal); N63.11 Unspecified lump in the right breast, upper outer quadrant | CPT/HCPCS: 76642 ==

== ENCOUNTER 2024-02-05 14:03 | Outpatient (REF) | payer OTHER, SELFPAY ==
--- NOTE | ~2024-02-05 | US_ITS ---
EXAMINATION: US DIAGNOSTIC ULTRASOUND BREAST, BILATERAL CLINICAL INFORMATION: 28-year-old female, felt palpable area of concern in the left breast 12 o'clock axis, 5 cm from the nipple. Practitioner felt additional palpable focus of concern at the 11 o'clock axis of the right breast, 8 cm from the nipple. COMPARISON: None available. TECHNIQUE: Ultrasound of the bilateral breasts was performed with real-time queen scale imaging and color Doppler. Attention was given to the palpable foci of concern left breast 12 o'clock axis, and right breast 11 o'clock axis. Both axillas were also interrogated. FINDINGS: RIGHT BREAST: In the right breast, 11 o'clock axis, 8 cm from the nipple, there is a markedly hypoechoic, irregular shadowing mass measuring 0.9 x 0.5 x 1.1 cm. There is mild tenting of the pectoralis fascia underneath this mass. No internal color Doppler flow. There are fatty echogenic changes surrounding the mass. This finding is suspicious, and ultrasound-guided biopsy is recommended. Right axilla demonstrates no abnormal macroscopic lymph nodes. LEFT BREAST: In the left breast, at the 12 o'clock axis, 5 cm from the nipple, there is an oval, hypoechoic, circumscribed mass, wider than tall, measuring 1.4 x 0.7 x 1.1 cm, with good through transmission and mild internal color Doppler flow. This has features most consistent with a fibroadenoma. Ultrasound-guided biopsy is recommended for definitive characterization. In the left breast at the 11 o'clock axis, 7 cm from the nipple, incidentally noted is a second oval hypoechoic mass versus complicated cyst, with through transmission, no internal color Doppler signal, wider than tall, with mildly lobulated margins, lying directly on the pectoralis fascia. This is most likely also a benign fibroadenoma, although ultrasound-guided biopsy is recommended for definitive characterization. Left axilla demonstrates no abnormal macroscopic lymph nodes. US/US breast BI limited mamm only IMPRESSION: RIGHT BREAST: Suspicious mass right breast 11 o'clock axis, for which ultrasound-guided biopsy is recommended. This correlated with the palpable abnormality. LEFT BREAST: Suspicious masses left breast 11 o'clock and 12 o'clock axes, for which a 2 site ultrasound-guided biopsy is recommended for definitive characterization. The 12 o'clock correlated with the palpable abnormality. Findings and recommendations were discussed with the patient in detail, who was incredibly nervous, and may not have fully understood the findings. She did understand the overall plan. ASSESSMENT: BI-RADS 4: Suspicious. RECOMMENDATION: Ultrasound-guided biopsy bilateral breasts as detailed.
== END 2024-02-05 14:04 | disposition home or self-care (01) ==
LOC: HO.MAMMO 14:03
PROVIDERS: Visit Provider Advanced Practice Midwife
DX: N63.21 Unspecified lump in the left breast, upper outer quadrant (principal); N63.22 Unspecified lump in the left breast, upper inner quadrant; N63.12 Unspecified lump in the right breast, upper inner quadrant; N63.11 Unspecified lump in the right breast, upper outer quadrant
CPT/HCPCS: 76642

== ENCOUNTER 2024-02-09 16:08 | Outpatient (AMB) | payer OTHER, SELFPAY ==
--- NOTE | 2024-02-09 16:12 | MHC.OFFVIS ---
Vital Signs 02/09/24 16:14 Height 4 ft 11 in Weight 105 lb 13.15 oz BMI 21.4 Intake Visit Reasons: US biopsy 2, lft side 11 & 12 , 1 rt side 11 Intake Note: This patient presents for a Ultrasound biopsy bilateral. Patient c/o; reports pain. Lumber Handler Required: No Accompanied by: Self / Same As Patient Allergies No Known Allergies Allergy (Verified 02/09/24 16:17) Medication List - Last Reconciled 02/09/24 by Gilmer Roland MD albuterol sulfate 90 mcg/actuation 2 puffs inhalation Q6H PRN albuterol sulfate 90 mcg/actuation (ProAir HFA) 2 puffs inhalation Q4-6H PRN albuterol sulfate 90 mcg/actuation 2 puffs inhalation Q6H PRN albuterol sulfate 90 mcg/actuation 2 puffs inhalation Q4-6H PRN albuterol sulfate 2.5 mg (3 mL) inhalation Q4-6H PRN fluticasone propionate 250 mcg/actuation (Flovent Diskus) 1 inh inhalation Q12H ipratropium-albuterol 0.5 mg-3 mg(2.5 mg base)/3 mL 3 mL inhalation Q6-8H PRN HPI HPI US biopsy 2, lft side 11 & 12 , 1 rt side 11 : Details: [age] year old female referred for breast masses. She says she went to the ER about 6 weeks ago because of what she felt was a mass on the left breast. She was referred for an ultrasound as an outpatient. This had shown 1 breast mass on the left breast and 2 breast masses in the right breast. She was therefore recommended to undergo biopsies follow-up all this masses. Her ultrasound showed an irregular shadowing mass 0.9 x 0.5 x 1.1 cm at the 11 o'clock position of the right breast. This also showed 2 masses in the left breast, 1 measuring about 1.4 x 0.7 x 1.1 cm at the 12:00 o'clock axis and a 2nd mass at the 11:00 o'clock axis that appears to be a fibroadenoma. She says that her mother was diagnosed to have breast cancer in her 40s. She says her mother also had colon cancer. She thinks that her mother had genetic testing and was positive for the BRCA gene. Her menarche was at the age of 12. Her 1st was at age of 20. She has had 4 pregnancies. She has regular periods. COUNTS INCLUDE 234 BEDS AT THE [facility] Medical History (Updated 02/09/24 @ 16:24 by Gilmer Rolnad MD) Masses of both breasts Breast mass, right Asthma Surgical History History of open heart surgery Family History Mother Breast cancer Colon cancer Social History Alcohol intake: never Substance Use Type: Marijuana Female Reproductive History Menstrual Age of Menarche: 11 Total pregnancies: 2 Review of Systems Const Denies chills and Denies fever(s) Card Denies chest pain, Denies dyspnea and Denies dyspnea on exertion Resp Denies cough, Denies dyspnea and Denies dyspnea on exertion GI Denies hematochezia and Denies change in bowel habits Denies hematuria Musc Denies back pain and Denies limited range of motion Neuro Denies focal weakness and Denies convulsions Psych Denies depression and Denies mood swings Physical Exam Vital Signs: BMI result Body Mass Index 21.4 Const General: comfortable and no acute distress Orientation/consciousness: patient oriented x3 Neck Neck: Yes no lymphadenopathy Chest Other: On the left breast is note of a palpable mass, well-defined, about 1 cm I do not feel the breast masses on the right breast She does not have any axillary lymphadenopathy Resp Auscultation: clear to auscultation bilaterally Cardio Rhythm: regular rhythm GI Palpation (GI): Soft to palpation, nontender and no guarding Neuro General: patient oriented x3 Assessment & Plan Assessment & Plan (1) Masses of both breasts: Code(s): N63.10 - Unspecified lump in the right breast, unspecified quadrant; N63.20 - Unspecified lump in the left breast, unspecified quadrant Category: Medical Plan: Her breast ultrasound shows a mass on the right breast and 2 masses on the left breast. Ultrasound biopsies of all these masses had been recommended by the radiologist I explained to her the technique of this procedure I will see her again in the office next week to discuss the path report (2) Family history of breast cancer in first degree relative: Comment: Patient states her mother had colon cancer twice starting at age 45 and then breast cancer and that she was positive for the BRCA gene. Patient states she was recommended to get tested some 8 years ago but did not want to know then... Code(s): Z80.3 - Family history of malignant neoplasm of breast Category: Medical Plan: Her mother was diagnosed to have breast cancer in her 40s. Her mother also had history of colon cancer I explained to the patient that she may benefit from genetic testing because of this family history. I explained to her the implications of this test to herself and her family. She says she is interested so we will schedule her for genetic testing and genetic counseling here in the office. Orders: Orders US breast ndl core biopsy LT Today N63.20 - Unspecified lump in the left breast, unspecified quadrant US breast ndl core biopsy RT Today N63.10 - Unspecified lump in the right breast, unspecified quadrant US breast ndl core bio ea add Today N63.20 - Unspecified lump in the left breast, unspecified quadrant Coding Level of Care Code New Pt Level 3 (15317) Diagnoses Masses of both breasts N63.10; N63.20 Family history of breast cancer in first degree relative Z80.3
[2024-02-09 16:14] VITALS: BMI 21.4
== END 2024-02-09 16:25 | disposition home or self-care (01) ==
PROVIDERS: Visit Provider Surgery
DX: N63.10 Unspecified lump in the right breast, unspecified quadrant (principal); N63.20 Unspecified lump in the left breast, unspecified quadrant; Z80.3 Family history of malignant neoplasm of breast
CPT/HCPCS: 99203

== ENCOUNTER → 2024-02-09 16:08 | Outpatient (BNVA) | payer OTHER, SELFPAY | PROVIDERS: Visit Provider Surgery | DX: N63.11 Unspecified lump in the right breast, upper outer quadrant (principal); N63.25 Unspecified lump in the left breast, overlapping quadrants; N63.22 Unspecified lump in the left breast, upper inner quadrant; Z80.3 Family history of malignant neoplasm of breast | CPT/HCPCS: 99202 ==

== ENCOUNTER 2024-02-10 09:47 | Outpatient (REF) | payer OTHER, SELFPAY ==
--- NOTE | ~2024-02-10 | US_ITS ---
PROCEDURE: US GUIDED BREAST BIOPSY, Bilateral CLINICAL INFORMATION: 28-year-old female, suspicious mass right breast 11:00 axis for which biopsy was recommended. Also, suspicious masses left breast 11:00 and 12:00 axes, for which 2 site biopsy left breast was recommended. COMPARISON: 02/05/2024 bilateral breast ultrasound. PROCEDURAL DETAILS: The details of the procedure, as well as the risks, benefits, and alternatives to the procedure were explained to the patient in detail and all of her questions were answered, after which written informed consent was obtained. Site and side were confirmed. RIGHT BREAST: Prior to the procedure, sonography revealed an irregular hypoechoic mass with shadowing in the 11:00 axis, measuring 0.9 x 0.5 x 1.1 cm. A time-out was performed, the lesion intended for biopsy was targeted, and the skin of the overlying right breast was then marked, prepped and draped in the usual sterile fashion. Using sonographic guidance, sterile technique, and 1% lidocaine without epinephrine for local anesthesia, multiple core biopsies were obtained through the targeted area with a 14G spring loaded Sertera core biopsy device. There was real-time confirmation of appropriate needle passage. Sampling was documented. At the completion of tissue sampling, a single open coil-shaped metallic clip was deposited at the biopsy site. LEFT BREAST: 11:00 axis mass: Site A: Prior to the procedure, sonography revealed an oval hypoechoic mass 11:00 axis, 7 cm from the nipple, measuring 0.9 x 0.4 x 0.9 cm. A time-out was performed, the lesion intended for biopsy was targeted, and the skin of the overlying left breast was then marked, prepped and draped in the usual sterile fashion. Using sonographic guidance, sterile technique, and 1% lidocaine without epinephrine for local anesthesia, multiple core biopsies were obtained through the targeted area with a 14G spring loaded Sertera core biopsy device. There was real-time confirmation of appropriate needle passage. Sampling was documented. At the completion of tissue sampling, a single barrel shaped metallic clip was deposited at the biopsy site. 12:00 axis mass: Site B: Prior to the procedure, sonography revealed an oval hypoechoic circumscribed mass in the 12:00 axis left breast, measuring 1.4 x 0.7 x 1.1 cm. A time-out was performed, the lesion intended for biopsy was targeted, and the skin of the overlying left breast was then marked, prepped and draped in the usual sterile fashion. Using sonographic guidance, sterile technique, and 1% lidocaine without epinephrine for local anesthesia, multiple core biopsies were obtained through the targeted area with a 14G spring loaded Interneerera core biopsy device. There was real-time confirmation of appropriate needle passage. Sampling was documented. At the completion of tissue sampling, a single butterfly-shaped metallic clip was deposited at the biopsy site. There was no evidence of immediate complication. SPECIMEN: 3 well formed core samples were obtained from all 3 sites. DIGITAL POST-PROCEDURE MAMMOGRAPHY: Not performed due to patient age. Clip position appears accurate in all 3 sites via ultrasound. US/US breast ndl core bio ea add IMPRESSION: 1. No immediate complication from ultrasound-guided percutaneous biopsy bilateral breasts as detailed above. Single site biopsy right breast lesion 11:00 axis, and dual site biopsies left breast masses 11:00 and 12:00 axes were performed. 2. Ultrasound was used to localize and guide marker clip placement, which appeared accurately placed at all sites. 3. Final pathology results are pending. A separate report with final recommendations will be issued once these results are made available.
[2024-02-10] MEDS: Sodium Bicarbonate 8.4% 50 MEQ/50 ML VIAL SUBCUT (11:51)
[2024-02-10] MEDS: Lidocaine HCl 1 % 20 ML VIAL SUBCUT (11:52)
== END 2024-02-10 09:48 | disposition home or self-care (01) ==
LOC: HO.MAMMO 09:47
PROVIDERS: Visit Provider Surgery
DX: N63.11 Unspecified lump in the right breast, upper outer quadrant (principal); N63.22 Unspecified lump in the left breast, upper inner quadrant; N63.25 Unspecified lump in the left breast, overlapping quadrants
CPT/HCPCS: 19083; 19084; 88305; A4648; C1894

== ENCOUNTER → 2024-02-10 09:48 | Outpatient (BNV) | payer OTHER, SELFPAY | PROVIDERS: Visit Provider Radiology Diagnostic Radiology | DX: N63.20 Unspecified lump in the left breast, unspecified quadrant (principal); N63.10 Unspecified lump in the right breast, unspecified quadrant | CPT/HCPCS: 19083; 19084 ==

== ENCOUNTER 2024-02-16 10:02 | Outpatient (AMB) | payer OTHER, SELFPAY ==
--- NOTE | 2024-02-16 10:07 | A.OFFVIS_ITS ---
Vital Signs 02/16/24 10:10 Height 4 ft 11 in Weight 105 lb 13.15 oz BMI 21.4 Intake Visit Reasons: breast pain s/p US Bx Intake Note: This patient presents for breast pain status post breast biopsy. Patient c/o; reports bilateral breast pain status post biopsy, reports I feel like I can breathe in or out good after they did this . reports no redness or got to the touch sensation. Php Web Developer Required: No Accompanied by: Self / Same As Patient Allergies No Known Allergies Allergy (Verified 02/16/24 10:12) Medication List - Last Reconciled 02/16/24 by Gilmer Roland MD albuterol sulfate 90 mcg/actuation 2 puffs inhalation Q6H PRN albuterol sulfate 90 mcg/actuation (ProAir HFA) 2 puffs inhalation Q4-6H PRN albuterol sulfate 90 mcg/actuation 2 puffs inhalation Q6H PRN albuterol sulfate 90 mcg/actuation 2 puffs inhalation Q4-6H PRN albuterol sulfate 2.5 mg (3 mL) inhalation Q4-6H PRN fluticasone propionate 250 mcg/actuation (Flovent Diskus) 1 inh inhalation Q12H ipratropium-albuterol 0.5 mg-3 mg(2.5 mg base)/3 mL 3 mL inhalation Q6-8H PRN HPI HPI breast pain s/p US Bx: Details: [age] year old female here for follow-up for breast masses. She had unde rgone ultrasound biopsy of 3 masses on the left and right breasts last week. All of the showed fibrous stromal tissue. However, the palpable mass on the left breast on the upper part has been both ering her for several months now. She wants this removed because of pain. She says she tolerated the biopsy well but states that this seems to have made the pain worse. She says that her mother was diagnosed to have breast cancer in her 40s. She says her mother also had colon cancer. She thinks that her mother had genetic testing and was positive for the BRCA gene. Her menarche was at the age of 12. Her 1st was at age of 20. She has had 4 pregnancies. She has regular periods. [facility] Medical History Masses of both breasts Breast mass, right Asthma Surgical History History of open heart surgery Family History Mother Breast cancer Colon cancer Social History Alcohol intake: never Substance Use Type: Marijuana Female Reproductive History Menstrual Age of Menarche: 11 Review of Systems Const Denies chills and Denies fever(s) Card Denies chest pain, Denies dyspnea and Denies dyspnea on exertion Resp Denies cough, Denies dyspnea and Denies dyspnea on exertion GI Denies hematochezia and Denies change in bowel habits Denies hematuria Musc Denies back pain and Denies limited range of motion Neuro Denies focal weakness and Denies convulsions Psych Denies depression and Denies mood swings Physical Exam Vital Signs: BMI result Body Mass Index 21.4 Const General: comfortable and no acute distress Orientation/consciousness: patient oriented x3 Neck Neck: Yes no lymphadenopathy Chest Other: Palpable breast mass at around the 12 o'clock position of the left breast, about 1 cm in size, well-defined, mobile Resp Auscultation: clear to auscultation bilaterally Cardio Rhythm: regular rhythm GI Palpation (GI): Soft to palpation, nontender and no guarding Neuro General: patient oriented x3 Assessment & Plan Assessment & Plan (1) Palpable mass of breast: Comment: Patient complained of painful lump of left breast palpable masses both breasts 1:00 to 3:00 irregular somewhat solid Code(s): N63.0 - Unspecified lump in unspecified breast Category: Medical Plan: Her biopsy shows benign fibrous stromal tissue. However the left breast mass been bothering her with pain and she wants this removed. 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 I explained the technique of excision under anesthesia. I reviewed the risks including but not limited to bleeding, infections, hematoma, as well as the benefits and alternatives She wants to proceed. She was also scheduled to have genetic testing here in the office because of her family history of breast cancer. Medications: New tramadol 50 mg PO BID PRN 10 tabs 0RF pain Coding Level of Care Code Est Pt Level 3 (08325) Diagnoses Palpable mass of breast N63.0
[2024-02-16 10:10] VITALS: BMI 21.4
== END 2024-02-16 10:30 | disposition home or self-care (01) ==
LOC: HO.HGS 10:02
PROVIDERS: Visit Provider Surgery
DX: N63.0 Unspecified lump in unspecified breast (principal)
CPT/HCPCS: 99213

== ENCOUNTER → 2024-02-16 10:02 | Outpatient (BNVA) | payer OTHER, SELFPAY | PROVIDERS: Visit Provider Surgery | DX: N64.4 Mastodynia (principal); N63.10 Unspecified lump in the right breast, unspecified quadrant; N63.21 Unspecified lump in the left breast, upper outer quadrant | CPT/HCPCS: 99212 ==

== ENCOUNTER → 2024-02-19 14:47 | Outpatient (BNVA) | payer OTHER, SELFPAY | PROVIDERS: Visit Provider Surgery ==

== ENCOUNTER 2024-03-15 14:12 | Outpatient (AMB) | payer OTHER, SELFPAY ==
[2024-03-15 14:13] VITALS: BP 108/58; PULSE 63; O2SAT 95; BMI 21.4
--- NOTE | 2024-03-15 14:13 | MHC.PC.OV ---
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 Accompanied by: Self / Same As Patient Allergies No Known Allergies Allergy (Verified 03/15/24 14:25) Medication List - Last Reconciled 03/15/24 by Nubia Fregoso PA-C albuterol sulfate 90 mcg/actuation 2 puffs inhalation Q6H PRN albuterol sulfate 90 mcg/actuation (ProAir HFA) 2 puffs inhalation Q4-6H PRN albuterol sulfate 90 mcg/actuation 2 puffs inhalation Q6H PRN albuterol sulfate 90 mcg/actuation 2 puffs inhalation Q4-6H PRN albuterol sulfate 2.5 mg (3 mL) inhalation Q4-6H PRN fluticasone propionate 250 mcg/actuation (Flovent Diskus) 1 inh inhalation Q12H ipratropium-albuterol 0.5 mg-3 mg(2.5 mg base)/3 mL 3 mL inhalation Q6-8H PRN Tobacco use date assessed: 03/15/24 Dental Screening Dental Screen Date: 03/15/24 Did you have a dental visit in the last 12 months?: No Did you have a dental problem in the last 6 months where you did not have access to dental care?: No Was dental information given to patient?: Patient has dentist HPI surgery left breast fibroadenoma HPI Details 29 year old female with past history of asthma, coming to the office for the first time for pre op exam. In review of the notes, patient was seen by [facility] [place] [facility] 02/2024 for bilateral breast pain s/p biopsy. Biopsy revealed benign fibrous stromal tissue however patient was having discomfort in left breast and opted for surgical resection of mass. No history of CVA, FL, CHF, or diabetes mellitus. Not currently on blood thinners or antiplatelets. Patient states she has been having breast discomfort and heaviness on the left side which she attributes to the breast lump. She also mentioned since the biopsy she has had increased pain on the left side. Patient has not been seen by primary care in several years does have a few chronic concerns today. [facility] Medical History (Updated 03/15/24 @ 14:42 by Nubia Fregoso PA-C) Masses of both breasts Breast mass, right Asthma Surgical History History of open heart surgery Family History (Updated 03/15/24 @ 14:28 by Nubia Fregoso PA-C) Mother Breast cancer Colon cancer Brother Leukemia Social History Housing: Apartment Alcohol intake: never Patient Tobacco Use Status: Never used Tobacco Tobacco use type: Cigarette e-Cigarette/Vaping Use: Never Used Substance Use Type: Marijuana service: No Current occupational status: unemployed Cognitive needs: No Hearing needs: No Vision needs: Yes Female Reproductive History Menstrual Age of Menarche: 11 control method: none Total pregnancies: 4 Number of Living Children: 2 Ab induced: 2 History of abnormal pap smear: No Questionnaire PHQ-9 Over the last 2 weeks, how often have you been bothered by any of the following problems? 1. Little interest or pleasure in doing things: not at all 2. Feeling down, depressed, or hopeless: not at all 3. Trouble falling or staying asleep, or sleeping too much: not at all 4. Feeling tired or having little energy: not at all 5. Poor appetite or overeating: not at all 6. Feeling bad about yourself - or that you are a failure or have let yourself or your family down: not at all 7. Trouble concentrating on things, such as reading the newspaper or watching television: not at all 8. Moving or speaking so slowly that other people could have noticed. Or the opposite - being so fidgety or restless that you have been moving around a lot more than usual: not at all 9. Thoughts that you would be better off or of hurting yourself in some way: not at all Total score: 0 Depression Screening Interpretation: Negative Depression Screening Done: Yes 92135 - PHQ-9 Billing: Yes Source: Developed by Drs. Lupillo Gee, Joy Anguiano, Lupillo Shanks and colleagues, with an educational salome from [employer]. Thrive Questionnaire Date Thrive assessed: 03/15/24 I am a: Patient What is your living situation today?: I have a steady place to live Within the past 12 months, did the food you bought not last and you didn't have the money to get more?: Never true Within the past 12 months, did you worry whether your food would run out before you got money to buy more?: Never true Do you have trouble paying for medicines?: No Do you have trouble getting transportation to medical appointments?: No Do you have trouble paying your heating and electricity bill?: No Do you have trouble taking care of your child, family member or friend?: No Do you have trouble with day-to-day activities such as bathing, preparing meals, shopping, managing finances, etc.?: No Are you currently unemployed and looking for a job?: No Are you interested in more education?: No THRIVE Score: 0 AUDIT C Alcohol Use Questionnaire (AUDIT-C) 1. How often do you have a drink containing alcohol?: Never Total Score: 0 KAYLYNN-7 AMB Questionnaire KAYLYNN-7 Date KAYLYNN - 7 assessed: 03/15/24 Feeling nervous, anxious, or on edge: 1 = Several days Not being able to stop or control worryin = Not at all Worrying too much about different things: 0 = Not at all Trouble relaxin = Not at all Being so restless that it is hard to sit still: 0 = Not at all Becoming easily annoyed or irritable: 0 = Not at all Feeling afraid as if something awful might happen: 0 = Not at all Total KAYLYNN-7 score (0-4 normal; 5-9 mild; 10-14 moderate; 15-21 severe): 1 Source: Developed by Drs. Lupillo Gee, Joy Anguiano, Lupillo Shanks and colleagues, with an educational salome from [employer]. KAYLYNN-7 Assessment Billing KAYLYNN-7 Assessment Tool: KAYLYNN-7 Assessment 43144 Review of Systems Const Denies body aches, Denies fatigue, Denies fever(s), Denies frequent falls, Denies headache(s) and Denies weakness Eyes Reports no additional complaints and Denies change in vision ENT Denies dysphagia, Denies dizziness, Denies facial pain, Denies headache(s), Denies nasal congestion and Denies odynophagia Card Denies chest pain, Denies syncope, Denies irregular heart rhythm, Denies leg edema, Denies lightheadedness and Denies dyspnea Resp Denies cough and Denies dyspnea GI Denies constipation, Denies dysphagia, Denies dyspepsia, Denies diarrhea, Denies nausea, Denies odynophagia and Denies vomiting Denies urinary frequency, Reports menorrhagia, Reports dyspareunia, Reports dysmenorrhea, Denies dysuria, Denies urinary hesitancy and Denies urinary urgency Musc Denies back pain and Denies myalgias Skin/Breast Details: history of cold sores Reports breast pain and Reports breast mass Neuro Denies dizziness, Denies syncope, Denies frequent falls, Denies headache(s) and Denies weakness Psych Reports no additional complaints Endo Denies fatigue Physical exam (Primary Care) BMI result Body Mass Index 21.4 Tobacco/Smoking Status: Tobacco use Status Tobacco use date assessed 03/15/24 03/15/24 14:20 Patient Tobacco Use Status Never used Tobacco 03/15/24 14:20 Tobacco use type Cigarette 03/15/24 14:20 e-Cigarette/Vaping Use Never Used 03/15/24 14:20 PHQ-9: PHQ-9 Score PHQ-9: Total score 0 03/15/24 14:20 Depression Screening Interpretation: Negative Thrive Assessment: Date of Thrive Assessment Date Thrive assessed 03/15/24 03/15/24 14:20 Const General: cooperative, healthy appearing, comfortable and no acute distress Orientation/consciousness: patient oriented x3 HENMT Head: Yes normocephalic Ears: hearing grossly normal bilaterally General nose exam: Normal external nose present Eyes General: appearance normal, both eyes and all related structures Conjunctivae: conjunctivae normal Neck Neck: Yes full ROM and Yes no lymphadenopathy Resp Effort & Inspection: normal respiratory effort Auscultation: clear to auscultation bilaterally, no crackles, no rales, no rhonchi and no wheezes Cardio Rate: regular rate Rhythm: regular rhythm Skin General skin exam: no rashes or lesions noted Neuro General: patient oriented x3 Gait exam (Neuro): Normal gait present Extrem General: Yes normal to inspection, Yes full ROM and No edema Psych Affect: normal affect Attitude: cooperative Insight: Good insight present (Psych) Judgement: Good judgement present (Psych) Assessment and Plan Assessment & Plan (1) Pre-op evaluation: Code(s): Z01.818 - Encounter for other preprocedural examination Plan: Regarding preop clearance, the patient is at low risk for cardiovascular complications for proposed surgery due to lack of comorbidities and age. Reviewed with the patient that no surgery is completely free of risk and that this examination is to assist the surgeon in reviewing informed consent. Blood work and EKG completed December 2023 which may need to be updated depending on date of surgery. Patient has had anesthesia in the past without complication however this was over 10 years ago. Patient is not currently on any blood thinners, NSAIDs, or antiplatelet medications. 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 (3) Dyspareunia in female: Code(s): N94.10 - Unspecified dyspareunia Plan: Patient has been having pain with intercourse for several years now along with heavy periods. Patient does have an appointment with Gynecology in the coming months and transvaginal ultrasound ordered. (4) Asthma: Comment: States it is fine now she does not have a primary care provider... Code(s): J45.909 - Unspecified asthma, uncomplicated Plan: Good control of asthma with Flovent and albuterol as needed. She does mentioned she has flares during the colder months. Plan We will follow up in 2 months for complete physical. This note was constructed using voice recognition software. While every effort has been made to ensure accuracy and soft crab shedder, still areas may have been included sometimes these areas may affect the content or meeting of the given symptoms. Total time spent caring for the patient today was 30 minutes. This includes time spent before the visit reviewing the chart, time spent during the visit, and time spent after the visit and documentation. Orders: Orders US pelvic and transvaginal Today N94.10 - Unspecified dyspareunia Medications: New valacyclovir 500 mg PO BID 3 days 6 tabs 3RF Discontinued albuterol sulfate 90 mcg/actuation Discontinued Reason: Patient no longer taking 2 puffs inhalation Q6H PRN 8.5 grams 0RF shortness of breath or wheezing albuterol sulfate 90 mcg/actuation (ProAir HFA) Discontinued Reason: Patient no longer taking 2 puffs inhalation Q4-6H PRN 8.5 grams 0RF shortness of breath or wheezing albuterol sulfate 90 mcg/actuation Discontinued Reason: Patient no longer taking 2 puffs inhalation Q6H PRN 6.7 grams 0RF shortness of breath or wheezing Coding Level of Care Code New Pt Level 3 (89418) Diagnoses Pre-op evaluation Z01.818 Recurrent cold sores B00.1 Dyspareunia in female N94.10 Asthma J45.909 Additional Codes KAYLYNN-7 Assessment Billing - KAYLYNN-7 Assessment Tool: KAYLYNN-7 Assessment 33311 ([id number])
== END 2024-03-15 15:29 | disposition home or self-care (01) ==
DX: Z01.818 Encounter for other preprocedural examination (principal); B00.1 Herpesviral vesicular dermatitis; N94.10 Unspecified dyspareunia; J45.909 Unspecified asthma, uncomplicated
CPT/HCPCS: 99203

== ENCOUNTER 2024-04-02 09:18 | Day surgery (SDC) | payer OTHER, SELFPAY ==
[2024-03-17 12:35] VITALS: BMI 21.4
--- NOTE | 2024-03-31 15:04 | P.CONAN_ITS ---
Documented by User: Ghazal Marin NP 03/31/24 15:07 HPI - Anesthesia Eval Consult details Narrative: 29yo F for Left Breast Mass Excision Medically optimized Hx of heart surgery as child. Pt unsure exact surgery, but does not require to follow with cardiology now. PMFSH Active Problems Active Problems: All Active Problems Recurrent cold sores (Acute) Dyspareunia in female (Acute) Pre-op evaluation (Acute) Family history of breast cancer in first degree relative (Acute) Palpable mass of breast (Acute) Masses of both breasts (Acute) Breast mass, right (Acute) Asthma (Acute) History of open heart surgery (Acute) Past Medical History Medical History Back pain Anemia Murmur Hx of transfusion of packed red blood cells Masses of both breasts Breast mass, right Asthma Family History Family History Mother Breast cancer Colon cancer Brother Leukemia Surgical History Surgical History History of open heart surgery Social History Social History Housing: Apartment Are you a primary team primary care physician to a significant other at home: No Do you presently have visiting nurse or other home services: No Alcohol intake: never Patient Tobacco Use Status: Never used Tobacco Tobacco use type: Cigarette e-Cigarette/Vaping Use: Never Used Use of substances other than those prescribed or required for medical reasons: Yes Substance Use Type: Marijuana Substance Use Frequency: Daily Have you been hit, kicked, punched, or otherwise hurt by someone within the past year? If so, by whom?: No Are you DNR?: No Advance Directives: No Advance Directives Information Provided: Yes Advance Directives on File: No Recently lost weight without trying: No Eating poorly because of decreased appetite: No Nutrition Risks: No Nutritional Risk Patient : No : No Poor oral hygiene: No service: No Current occupational status: unemployed Cognitive needs: No Hearing needs: No Vision needs: Yes Meds Allergies Allergy/AdvReac Type Severity Reaction Status Date / Time No Known Allergies Allergy Verified 04/02/24 10:03 Home Medications ?Medication ?Instructions ?Recorded ?Confirmed ?Last Taken ?Type multivitamin 1 tab PO DAILY 03/17/24 04/02/24 Unknown History valacyclovir 500 mg tablet 500 mg PO BID PRN Outbreak 03/17/24 04/02/24 Unknown History Exam Height,Weight and Vital Signs: Height 4 ft 11 in Weight 48.081 kg Pertinent Lab Results Pertinent Lab Results: Laboratory Tests 12/29/23 19:39 WBC 5.8 Hgb 13.3 Hct 39.4 Plt Count 181 Sodium 142 Potassium 4.5 Chloride 107 Carbon Dioxide 23 BUN 8 L Creatinine 0.79 Narrative Narrative: EKG 12/2023 Vent. Rate : 048 BPM Atrial Rate : 048 BPM P-R Int : 178 ms QRS Dur : 076 ms QT Int : 482 ms P-R-T Axes : 005 070 046 degrees QTc Int : 430 ms Sinus bradycardia Nonspecific ST and T wave abnormality Abnormal ECG When compared with ECG of 11-JUL-2022 19:52, No significant change was found Assessment and Plan Assessment Anesthesia Assessment: Chart Reviewed Documented by User: Shelby Bennett MD 04/02/24 10:19 PMFSH Past Medical History Medical History Back pain Anemia Murmur Hx of transfusion of packed red blood cells Masses of both breasts Breast mass, right Asthma Family History Family History Mother Breast cancer Colon cancer Brother Leukemia Family history of problems with anesthesia: No Surgical History Surgical History History of open heart surgery History of Problems with Anesthesia: No Social History Social History Housing: Apartment Are you a primary team primary care physician to a significant other at home: No Do you presently have visiting nurse or other home services: No Alcohol intake: never Patient Tobacco Use Status: Never used Tobacco Tobacco use type: Cigarette e-Cigarette/Vaping Use: Never Used Use of substances other than those prescribed or required for medical reasons: Yes Substance Use Type: Marijuana Substance Use Frequency: Daily Have you been hit, kicked, punched, or otherwise hurt by someone within the past year? If so, by whom?: No Are you DNR?: No Advance Directives: No Advance Directives Information Provided: Yes Advance Directives on File: No Recently lost weight without trying: No Eating poorly because of decreased appetite: No Nutrition Risks: No Nutritional Risk Patient : No : No Poor oral hygiene: No service: No Current occupational status: unemployed Cognitive needs: No Hearing needs: No Vision needs: Yes Meds Allergies Allergy/AdvReac Type Severity Reaction Status Date / Time No Known Allergies Allergy Verified 04/02/24 10:03 Home Medications ?Medication ?Instructions ?Recorded ?Confirmed ?Last Taken ?Type multivitamin 1 tab PO DAILY 03/17/24 04/02/24 Unknown History valacyclovir 500 mg tablet 500 mg PO BID PRN Outbreak 03/17/24 04/02/24 Unknown History Exam Airway Mallampati Class: II TM Dist: >3cm Neck ROM: Full Heart: rrr Lungs: cta Assessment and Plan Assessment Anesthesia Assessment: Anesthesia Plan Discussed Final Anesthetic Review Family History of Problems with Anesthesia: No History of Problems with Anesthesia: No NPO: Yes ASA Class: II Final Preanesthetic Review: No Changes in Pt Med Stat, Meds/Allgs Chart Reviewed, Consent Obtained/Reviewed and Anes Risks/Benef Reviewed Patient Risk: Low Procedure Risk: Low Anesthetic Plan Anesthetic Plan: GA Disposition: Standard PACU
[2024-04-02] VITALS (12 sets, daily range): BP systolic 123–151; BP diastolic 49–98; PULSE 49–70; RESP 12–16; TEMP 36.1–36.3; O2SAT 97–100
[2024-04-02 09:47] LABS: UPreg QC Valid YES; Urine Pregnancy NEGATIVE (NEGATIVE)
--- NOTE | 2024-04-02 09:50 | MHC.SHP ---
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 Relevant Family History (Specify if Yes): No Relevant Social History: None Present Medications: see Short Stay Collaborative assessment Medical History: Significant History (Asthma , history of cardiac surgery as a child) Allergies: Allergies Allergy/AdvReac Type Severity Reaction Status Date / Time No Known Allergies Allergy Verified 03/15/24 14:25 Review of Systems Sugical H&P ROS: Negative: Constitution, Cardiovascular, Respiratory, Neurological, Psychiatric, Hem-Onc, Allergic/Immunologic, Gastrointestinal, Genitourinary, Musculoskeletal, Integumentary, Endocrine and Eyes/Ears/Nose/Throat Exam Surgical H&P Exam: Normal: Heart, Normal: Lungs and Normal: Abdomen Exam Comment: Palpable breast mass on the left at around 02:00 o'clock position Plan Diagnosis/Plan: Unchanged I have reviewed the history and physical and performed a pertinent physical examination on my patient. No changes have occurred unless specified. Time Spent With Patient Time: Total time managing care of this patient today ____ minutes.
[2024-04-02] MEDS: Lactated Ringers 1,000 ML 100 ML IVCONT (10:12)
--- NOTE | 2024-04-02 10:56 | P.OP_ITS ---
Operative Note Operative Note Date of Service: 04/02/24 Narrative: Preop diagnosis: Left breast mass, likely fibroadenoma Postop diagnosis: The same Procedure: Excision of left breast mass Surgeon: Gilmer Roland MD assistant women's soccer coach: LORENA Reeves The patient is a 29-year-old female with a palpable left breast mass on the upper part of the breast. It was very mobile. Biopsies had shown fibrous stromal tissue likely from a fibroadenoma. She however wanted to proceed with excision in view of discomfort. She understood the technique of excision as well as the risks, benefits, and alternatives. She had pointed to the area of the mass and we had marked this at the beginning prior to induction. The patient was brought to the operating room. She was placed supine under general anesthesia via LMA. The left breast was prepped and draped in the usual sterile fashion. A surgical time-out was done. The patient received cefazolin 2 g IV preoperatively. I infiltrated the planned line of incision with lidocaine 1%. I made the incision overlying the skin transversely using blade 15. This was carried down through the full-thickness of the skin subcutaneous fat with electrocautery. We then proceeded to palpate into the breast tissue to feel for the mass. I applied an Allis clamp on this area to retract this. I proceeded to then gently dissect with curved Watson scissors around this palpable mass. This had this felt rubbery but did not have well-defined margins. I dissected circumferentially with the curved Watson scissors until this was delivered. This was about a 2.5 cm mass. There were no other palpable masses surrounding this. I marked the supe rior and lateral margins with sutures I observed for hemostasis. There was note of some oozing areas within the excision cavity so I had to achieve hemostasis with electrocautery as well as [id number] Polysorb 3-0 sutures. I irrigated. Once hemostasis was confirmed, I reapposed deep breast tissue as well as the subcutaneous layer with Polysorb 3-0 interrupted sutures. Skin closure was achieved with Polysorb 4-0 subcuticular running stitch. The area was infiltrated with Marcaine 0.5% for postop analgesia Dressings were applied. The procedure was completed The patient tolerated the procedure well. There were no immediate complications. Initial and final counts of sponges and instruments were correct. Estimated blood loss about 50 cc The patient was extubated without difficulty and transferred to the recovery room with stable vital signs
[2024-04-02] MEDS: ondansetron HCL 4 MG/2 ML VIAL IVPUSH (11:22)
[2024-04-02] MEDS: fentaNYL citrate/PF 100 MCG/2 ML VIAL 25 MCG IVPUSH (12:11)
== END 2024-04-02 13:30 | disposition home or self-care (01) ==
PROVIDERS: Nurse Practitioner; Visit Provider Surgery
PROC: (CPT 19120; principal; 2024-04-02 10:50)
DX: N63.0 Unspecified lump in unspecified breast (principal); Z80.3 Family history of malignant neoplasm of breast; D24.2 Benign neoplasm of left breast; N60.32 Fibrosclerosis of left breast; J45.909 Unspecified asthma, uncomplicated; Z80.0 Family history of malignant neoplasm of digestive organs; Z79.51 Long term (current) use of inhaled steroids; Z79.899 Other long term (current) drug therapy; Z98.890 Other specified postprocedural states; Z56.0 Unemployment, unspecified
CPT/HCPCS: 19120; 81025; 88307; J0690; J1100; J2250; J2405; J2704; J2795; J3010

== ENCOUNTER → 2024-04-02 09:18 | Outpatient (BNV) | payer OTHER, SELFPAY | PROVIDERS: Visit Provider Surgery | DX: N60.22 Fibroadenosis of left breast (principal) | CPT/HCPCS: 19120 ==

== ENCOUNTER → 2024-04-15 13:33 | Outpatient (BNVA) | payer OTHER, SELFPAY | PROVIDERS: PCP Internal Medicine; Visit Provider Surgery | DX: Z09 Encounter for follow-up examination after completed treatment for conditions other than malignant neoplasm (principal); Z98.890 Other specified postprocedural states | CPT/HCPCS: 99211 ==

== ENCOUNTER 2024-07-06 20:10 | Emergency (ER) | payer SELFPAY ==
--- NOTE | ~2024-07-06 | XR_ITS ---
EXAMINATION: XR CHEST CLINICAL INFORMATION: cough COMPARISON: None available. TECHNIQUE: 2 views of the chest were obtained. FINDINGS: The lungs are hyperinflated but clear of acute process. The heart size and pulmonary vascularity is normal. There is mild dextroscoliosis of mid dorsal spine XR/XR chest 2V IMPRESSION: Hyperinflated lungs without acute process. Electronically signed by: Kavon Maldonado MD 07/06/2024 09:57 PM EST RP
[2024-07-06 20:16] VITALS: BP 123/77; PULSE 85; RESP 16; TEMP 36.7; O2SAT 98; BMI 22.7
--- NOTE | 2024-07-06 20:20 | ED.GENADULT ---
HPI - General Adult General Chief complaint: General Medical Stated complaint: fever since yesterday/surgery scars are hurting Time Seen by Provider: 07/06/24 23:59 Source: patient Limitations: no limitations History of Present Illness ED Provider: Elsie Yanes PA-C HPI narrative: 29-year-old female with a history of asthma presents with fever. Patient states she developed a fever at home. Associated generalized malaise, poor appetite, body aches, wheezing, chest tightness, sore throat. No sick contacts with same symptoms. Related Data Home Medications ?Medication ?Instructions ?Recorded ?Confirmed multivitamin 1 tab PO DAILY 03/17/24 04/02/24 valacyclovir 500 mg tablet 500 mg PO BID PRN Outbreak 03/17/24 04/02/24 Previous Rx's ?Medication ?Instructions ?Recorded fluticasone propionate 250 1 inh inhalation Q12H #60 ea 08/21/22 mcg/actuation blister powder for inhalation (Flovent Diskus) albuterol sulfate 2.5 mg/3 mL 2.5 mg (3 mL) inhalation Q4-6H PRN 08/05/23 (0.083 %) solution for nebulization shortness of breath or wheezing #75 mL albuterol sulfate 90 mcg/actuation 2 puff inhalation Q4-6H PRN 08/05/23 aerosol inhaler shortness of breath or wheezing #8.5 grams oxycodone-acetaminophen 5 mg-325 1 tab PO Q4-6H PRN pain #20 tabs 04/02/24 mg tablet (Percocet) albuterol sulfate 2.5 mg/3 mL 2.5 mg (3 mL) inhalation Q4-6H PRN 07/07/24 (0.083 %) solution for nebulization shortness of breath or wheezing #75 mL prednisone 20 mg tablet 40 mg (2 x 20 mg) PO DAILY #8 tabs 07/07/24 Allergies Allergy/AdvReac Type Severity Reaction Status Date / Time No Known Allergies Allergy Verified 07/06/24 20:18 Review of Systems Review of Systems: Yes all other systems are reviewed and are negative Constitutional: Constitutional: Reports fatigue, Reports fever(s), Reports malaise and Reports poor appetite Cardiovascular: Cardiovascular: Reports chest pain and Reports dyspnea Respiratory: Respiratory: Reports cough, Reports dyspnea and Reports wheezing Gastrointestinal: Gastrointestinal: Reports nausea Endocrine: Endocrine: Reports fatigue Allergic/Immunologic: Allergic/Immunologic: Reports wheezing PMFSH Past Medical History Attestation statement: The following information was validated with the patient. Medical History (Updated 07/07/24 @ 01:26 by LORENA Dunham) Back pain Anemia Murmur Hx of transfusion of packed red blood cells Masses of both breasts Breast mass, right Asthma Surgical History (Updated 04/13/24 @ 11:02 by Demetria Gamez Maria Teresa) History of excision of mass (~04/02/24) History of open heart surgery Family History Family History Mother Breast cancer Colon cancer Brother Leukemia Social History Social History Housing: Apartment Are you a primary customer care team coach to a significant other at home: No Do you presently have visiting nurse or other home services: No Unable to assess alcohol history related to: Unknown Alcohol intake: never Patient Tobacco Use Status: Never used Tobacco Tobacco use type: Cigarette Smoked in Last 30 Days: No e-Cigarette/Vaping Use: Never Used Use of substances other than those prescribed or required for medical reasons: Unknown Substance Use Type: Marijuana Advance Directives: No Advance Directives Information Provided: No Do you have a plan to hurt others: No Plan service: No Current occupational status: unemployed Cognitive needs: No Hearing needs: No Vision needs: Yes Physical Exam ED Vital Signs: Vital Signs - 24 hr 07/06/24 20:16 07/07/24 00:29 07/07/24 01:01 Temperature 98.1 F 100.6 F H Pulse Rate 85 81 104 H Respiratory Rate 16 20 20 Blood Pressure 123/77 Pulse Oximetry 98 98 Oxygen Delivery Method Room Air Room Air BMI result Body Mass Index 22.7 Const Other: Alert, well-appearing but does appear anxious Orientation/consciousness: patient oriented x3 HENMT Other: Oropharynx is erythematous, tonsils absent, no exudate, no trismus no drooling, uvula not deviated, no sublingual fluctuance Resp Other: Patient is tight, poor inspiratory effort, no active wheezing Cardio Other: Normal peripheral perfusion Skin Other: Warm dry no rash Neuro General: patient oriented x3, no focal motor deficits and CN's II-XI intact bilaterally Psych Other: Anxious, Course Course Course Narrative: RME, this is a rapid medical exam performed by Trent Arriaga please refer to primary provider for complete H&P- 29-year-old female with history of asthma presents for evaluation of cough, fevers, body aches. Plan for viral swabs and chest x-ray. She is well-appearing Medications Administered Discontinued Medications Generic Name Dose Route Start Last Admin Trade Name Freq PRN Reason Stop Dose Admin Albuterol Sulfate 5 mg/ 0 mg 07/07/24 00:46 07/07/24 00:51 Albuterol/Ipratropium 3 ml INHALE 07/07/24 00:47 1 each ONCE ONE Administration Prednisone 40 mg 07/07/24 00:35 07/07/24 00:51 Prednisone 20 Mg Tablet PO 07/07/24 00:36 40 mg ONCE ONE Administration Medical Decision Making Medical Decision Making MDM Narrative: 29-year-old female with a history of asthma presents with fever. Patient states she developed a fever at home. Associated generalized malaise, poor appetite, body aches, wheezing, chest tightness, sore throat. No sick contacts with same symptoms. Problem: Asthma History: Per patient I have considered the following differential diagnoses: Viral syndrome, strep pharyngitis, asthma exacerbation, pneumonia, DOCUMENT PREPARATION SPECIALIST, RPA Plan: Patient had a viral panel and chest x-ray obtained from triage, she has a influenza A. Unlikely to be strep throat given concurrent viral illness. No pneumonia on chest x-ray. No evidence of a peritonsillar or retropharyngeal abscess on exam. We will give an updraft, steroid. Patient was very eager to leave after her treatment. I have independently reviewed the following tests: Labs: Viral panel positive for flu A Chest x-ray: XR/XR chest 2V IMPRESSION: Hyperinflated lungs without acute process. Lab Data Labs: Lab Results 07/06/24 Range/Units 20:50 Influenza Type A (PCR) POSITIVE A (Negative) Influenza Type B (PCR) NEGATIVE (Negative) RSV RNA Qual (PCR) NEGATIVE (Negative) SARS-CoV-2 RNA (RT-PCR) NEGATIVE (Negative) Discharge Plan Discharge Clinical Impression: Influenza A, Asthma exacerbation Patient Disposition: Home, Self-Care Instructions: Asthma (ED), Influenza (ED) Additional Instructions: You are being treated for an asthma exacerbation, you were found to be positive for influenza 8. See home care instructions. You can use [id number] ibuprofen, alternated with [id number] Tylenol, for fevers and body aches. Use your home nebulizer as directed, take the steroid as directed. Follow up with your primary care provider as needed. Prescriptions: New albuterol sulfate 2.5 mg /3 mL (0.083 %) solution for nebulization 2.5 mg inhalation Q4-6H PRN (Reason: shortness of breath or wheezing) Qty: 75 0RF prednisone 20 mg tablet 40 mg PO DAILY Qty: 8 0RF No Action fluticasone propionate [Flovent Diskus] 250 mcg/actuation blister with device 1 inh inhalation Q12H Qty: 60 0RF albuterol sulfate 90 mcg/actuation HFA aerosol inhaler 2 puff inhalation Q4-6H PRN (Reason: shortness of breath or wheezing) Qty: 8.5 0RF albuterol sulfate 2.5 mg /3 mL (0.083 %) solution for nebulization 2.5 mg inhalation Q4-6H PRN (Reason: shortness of breath or wheezing) Qty: 75 0RF valacyclovir 500 mg tablet 500 mg PO BID PRN (Reason: Outbreak) multivitamin Tablet 1 tab PO DAILY oxycodone-acetaminophen [Percocet] 5-325 mg tablet 1 tab PO Q4-6H PRN (Reason: pain) Qty: 20 0RF Rx Instructions: Partial Fill upon patient request. Stand Alone Forms: Work/School Release Print Language: Egyptian
[2024-07-06 21:42] LABS: Influenza A PCR POSITIVE (Negative); Influenza B PCR NEGATIVE (Negative); Resp Syncy Virus RNA Qual PCR NEGATIVE (Negative); SARS COV2 PCR INHOUSE NEGATIVE (Negative)
--- NOTE | 2024-07-07 00:13 | PC.NURSE ---
pt continues to come out of the room and ask where the provider is, this RN informed the pt the providers are busy and that they will be in as soon as they can. Pt came out of room again saying lali been in the room 30 minutes this is ridiculous where is the doctor i cannot breathe This RN explained to the patient that provider is aware, just signed up for pt and is making her way over as soon as she can, explained that the patient is yelling and talking in full sentences, and does not appear to be in any respiratory distress. LORENA navarro aware
[2024-07-07 00:29] VITALS: BP 126/85; PULSE 81; RESP 20; TEMP 38.1; O2SAT 98
[2024-07-07] MEDS: predniSONE 20 MG TABLET 40 MG PO (00:51)
[2024-07-07] MEDS: Albuterol Sulfate 5 MG, Albuterol/Iprat 2.5/0.5MG 3 ML 3 ML INHALE (00:51)
[2024-07-07 01:01] VITALS: PULSE 104; RESP 20; O2SAT 96
[2024-07-07 01:32] VITALS: BP 120/73; PULSE 101; RESP 20; TEMP 36.9; O2SAT 97
[2024-07-07 01:36] VITALS: BP 120/73; PULSE 101; RESP 20; TEMP 36.9; O2SAT 97
== END 2024-07-07 01:37 | disposition home or self-care (01) ==
PROVIDERS: Physician Assistant; Emergency Provider Internal Medicine
DX: J10.1 Influenza due to other identified influenza virus with other respiratory manifestations (principal); R50.9 Fever, unspecified; R53.81 Other malaise; M79.10 Myalgia, unspecified site; R07.89 Other chest pain; Z79.899 Other long term (current) drug therapy; Z03.818 Encounter for observation for suspected exposure to other biological agents ruled out
CPT/HCPCS: 0241U; 71046; 94640; 99284